=== PATIENT | female | born 1970 | race Caucasian/White ===

== ENCOUNTER 2019-08-03 15:42 | Inpatient (IN) | payer MEDICARE, MEDICAID, SELFPAY ==
[2019-08-03] VITALS (19 sets, daily range): BP systolic 129–190; BP diastolic 87–130; PULSE 65–110; RESP 12–34; TEMP 36.4–36.5; O2SAT 94–100; BMI 46.5
--- NOTE | 2019-08-03 16:16 | ED_ITS ---
Entered by Lidya Hyde, acting as scribe for Aj Paul DO Documented by User: Aj Paul DO 08/03/19 17:06 HPI - SOB/Dyspnea General: Chief Complaint: Shortness of Breath/Dyspnea Stated Complaint: sob Time Seen by Provider: 08/03/19 16:16 Source: patient and RN notes reviewed Mode of arrival: EMS Limitations: no limitations History of Present Illness: HPI Narrative: 49 yo female presents to ED with complaints of shortness of breath. She said this began 2-3 days ago. The patient takes breathing treatments at home; she is not on oxygen. She had 2 breathing treatments in the ambulance on the way to the ER. MD elicited complaint: shortness of breath Pertinent past history: COPD, asthma and other (anxiety) Onset (ago): day(s) (2) Context: recent illness Timing: constant Severity: moderate Exacerbating factors: exertion, talking and smoke Relieving factors: oxygen and rest Known history of: COPD, asthma and other (anxiety) Associated symptoms: Reports chest pain Treatment prior to arrival: oxygen and other (breathing treatment) Related Data: Home oxygen amount: none Review of Systems General: Reports: 10 or more systems reviewed and unremarkable except in HPI and below Card: Reports: chest pain [facility] ED PFSH: Social History Smoking and tobacco status: former smoker Alcohol intake: current Alcohol intake frequency: few times a week Physical Exam Const: COMMON NORMALS: no apparent distress, average body habitus, oriented x3, no limitations, healthy appearing, alert and well nourished HENMT: COMMON NORMALS: normocephalic, head/scalp atraumatic, hearing grossly normal bilaterally, external ears normal, EAC's normal, TM's normal bilaterally, external nose normal, nasal mucous membranes and turbinates normal, moist oral mucous membranes, oropharynx normal, dentition normal and gingiva normal HEAD & SCALP: normocephalic and atraumatic NOSE: external nose normal and nasal mucous membranes and turbinates normal EXTERNAL EAR: Yes external ears normal EXTERNAL AUDITORY CANAL: EAC's normal TYMPANIC MEMBRANE: TM's normal bilaterally Eye: COMMON NORMALS: PERRL, EOMs intact bilaterally, conjunctivae normal, no scleral icterus, no papilledema, normal visual roche by confrontation and fundi normal bilaterally CONJUNCTIVA: Yes conjunctivae normal PUPIL: Yes PERRL DIRECT OPHTHALMOSCOPY: Yes no papilledema and Yes fundi normal bilaterally Neck/C-Spine: COMMON NORMALS: full ROM, no lymphadenopathy, supple, no meningeal signs, no JVD, thyroid normal and no carotid bruits THYROID: thyroid normal Chest: COMMONS NORMALS: inspection of chest normal and palpation of chest normal Resp: COMMON NORMALS: normal respiratory effort, no retractions, no use of accessory muscles, clear to auscultation bilaterally and percussion normal AUSCULTATION: clear to auscultation bilaterally PERCUSSION: percussion normal Cardio: COMMON NORMALS: no JVD, regular rate, regular rhythm, S1 normal heart sound, S2 normal heart sound, no gallops, no clicks, no murmurs, no rub and peripheral pulses 2+ throughout RATE: regular rate RHYTHM: regular rhythm HEART SOUNDS: S1 normal and S2 normal PERIPHERAL PULSES: pulses 2+ throughout GI: COMMON NORMALS: normal to inspection, nondistended, normoactive bowel sounds, soft to palpation, non-tender, no hepatosplenomegaly, no masses and no bruits PALPATION: Yes soft and Yes no hepatosplenomegaly : COMMON NORMALS: Yes no CVA tenderness and Yes external appearance normal BLADDER/KIDNEY EXAM: Yes no CVA tenderness Back/Pelvis: COMMON NORMALS: no CVA tenderness, thoracic and lumbar spine normal to inspection, no thoracic nor lumbar tenderness, thoraco-lumbar ROM normal and straight leg raise negative bilaterally Extremity: COMMON NORMALS: normal to inspection, full ROM, normal capillary refill, no joint enlargement, no clubbing, cyanosis or edema, no calf tenderness and no pedal edema Neuro: COMMON NORMALS: oriented x3 SENSORIUM/ORIENTATION: Yes alert MENINGEAL SIGNS: Yes no meningeal signs Skin: COMMON NORMALS: no rashes or lesions noted, no wounds, skin turgor normal, no jaundice, no petechiae and no mottling GENERAL SKIN EXAM: no rashes or lesions noted and turgor normal Course Vital Signs: Vital signs: Vital Signs Temperature 97.7 F 08/03/19 15:43 Pulse Rate 82 08/03/19 16:02 Respiratory Rate 12 08/03/19 17:52 Blood Pressure 136/99 08/03/19 16:02 Pulse Oximetry 99 08/03/19 16:02 MDM - SOB/Dyspnea Lab Data: Labs: Lab Results 08/03/19 08/03/19 08/03/19 Range/Units 16:45 16:52 16:52 WBC 10.0 (4.0-10.0) 10^3/ uL RBC 5.04 (4.1-5.3) 10^6/u L Hgb 14.4 (11.5-15.3) g/dL Hct 44.0 (37.0-47.0) % MCV 87.3 (81-99) fL MCH 28.6 (28.0-34.0) pg MCHC 32.7 (30.0-36.0) g/dL RDW 14.1 (12.1-15.1) % Plt Count 276 (130-400) 10^3/c mm MPV 10.1 (7.4-10.4) fL Neut % (Auto) 78.6 % Lymph % (Auto) 18.3 % Carbon % (Auto) 2.0 % Eos % (Auto) 0.5 % Baso % (Auto) 0.4 % Neut # (Auto) 7.9 H (1.8-7.7) 10^3/u L Lymph # (Auto) 1.8 (0.8-4.8) 10^3/u L Carbon # (Auto) 0.2 (0.2-0.9) 10^3/u L Eos # (Auto) 0.1 (0.0-0.8) 10^3/u L Baso # (Auto) 0.0 (0.0-0.1) 10^3/u L Nucleated RBC % (a uto) 0 % Nucleated RBCs # 0.0 /100WBC Sodium 137 (136-145) mmol/L Potassium 4.4 (3.5-5.1) mmol/L Chloride 100 (98-107) mmol/L Carbon Dioxide 20 L (22-29) mmol/L Anion Gap 21.4 H (5-19) BUN 18 (6-20) mg/dL Creatinine 1.0 H (0.5-0.9) mg/dL GFR Calculation 59.2 L (90-130) mL/min Glucose 151 H (65-115) mg/dL Calcium 10.3 (8.5-10.5) mg/dL Total Bilirubin 0.4 (0.15-1.2) mg/dL AST 27 (0-32) U/L ALT 30 (0-33) U/L Alkaline Phosphata se 95 (35-105) IU/L Troponin T Baselin e (0-10) ng/mL Troponin T 120 Min augustine (0-10) ng/mL Delta Troponin T (0-10) ABS# NT-Pro-B Natriuret Pep 53 (0-125) pg/mL Total Protein 8.6 (6.6-8.7) g/dL Albumin 4.9 (3.5-5.2) g/dL Globulin 3.7 (1.3-4.6) g/dL Lipase 20 (13-60) U/L Influenza Type A A g Negative (Negative) POC Influenza B Ag Negative (Negative) 08/03/19 08/03/19 Range/Units 16:52 18:39 WBC (4.0-10.0) 10^3/ uL RBC (4.1-5.3) 10^6/u L Hgb (11.5-15.3) g/dL Hct (37.0-47.0) % MCV (81-99) fL MCH (28.0-34.0) pg MCHC (30.0-36.0) g/dL RDW (12.1-15.1) % Plt Count (130-400) 10^3/c mm MPV (7.4-10.4) fL Neut % (Auto) % Lymph % (Auto) % Carbon % (Auto) % Eos % (Auto) % Baso % (Auto) % Neut # (Auto) (1.8-7.7) 10^3/u L Lymph # (Auto) (0.8-4.8) 10^3/u L Carbon # (Auto) (0.2-0.9) 10^3/u L Eos # (Auto) (0.0-0.8) 10^3/u L Baso # (Auto) (0.0-0.1) 10^3/u L Nucleated RBC % (a uto) % Nucleated RBCs # /100WBC Sodium (136-145) mmol/L Potassium (3.5-5.1) mmol/L Chloride (98-107) mmol/L Carbon Dioxide (22-29) mmol/L Anion Gap (5-19) BUN (6-20) mg/dL Creatinine (0.5-0.9) mg/dL GFR Calculation (90-130) mL/min Glucose (65-115) mg/dL Calcium (8.5-10.5) mg/dL Total Bilirubin (0.15-1.2) mg/dL AST (0-32) U/L ALT (0-33) U/L Alkaline Phosphata se (35-105) IU/L Troponin T Baselin e 10 (0-10) ng/mL Troponin T 120 Min augustine 8.35 (0-10) ng/mL Delta Troponin T -1.65 L (0-10) ABS# NT-Pro-B Natriuret Pep (0-125) pg/mL Total Protein (6.6-8.7) g/dL Albumin (3.5-5.2) g/dL Globulin (1.3-4.6) g/dL Lipase (13-60) U/L Influenza Type A A g (Negative) POC Influenza B Ag (Negative) Discharge Plan Discharge Patient Disposition: Placed in Observation Clinical Impression: Chest pain Condition: Stable Prescriptions: No Action albuterol sulfate [Ventolin HFA] 90 mcg/actuation HFA aerosol inhaler 2 puff INHALATION Q6H PRNRF: 0 olmesartan [Benicar] 40 mg tablet 40 mg PO ONCE RF: 0 amlodipine 10 mg tablet 10 mg PO .AT BEDTIME RF: 0 atorvastatin [Lipitor] 40 mg tablet 40 mg PO DAILY RF: 0 Byetta 5 mcg/dose (250 mcg/mL) 1.2 mL pen injector 5 mcg SUBCUT BID RF: 0 ondansetron HCl 4 mg tablet 4 mg PO Q8H PRNRF: 0 duloxetine 60 mg capsule,delayed release(DR/EC) 60 mg PO DAILY RF: 0 fluticasone propionate 50 mcg/actuation spray,suspension 1 spray INTRANASAL BID RF: 0 cetirizine [Zyrtec] 10 mg tablet 10 mg PO DAILY RF: 0 Referrals: Emmy Sandoval MD [Primary Care Provider] - Coding Level of Care Code ED Oxidation Operator for Chg Fwd Exam Comprehensive Documented by User: Bren Valente 08/03/19 20:27 HPI - SOB/Dyspnea General: Chief Complaint: Shortness of Breath/Dyspnea Stated Complaint: sob Time Seen by Provider: 08/03/19 16:16 PFSH ED PFSH: Social History Smoking and tobacco status: former smoker Alcohol intake: current Alcohol intake frequency: few times a week Course Vital Signs: Vital signs: Vital Signs Temperature 97.7 F 08/03/19 15:43 Pulse Rate 82 08/03/19 16:02 Respiratory Rate 12 08/03/19 17:52 Blood Pressure 136/99 08/03/19 16:02 Pulse Oximetry 99 08/03/19 16:02 MDM - SOB/Dyspnea MDM Narrative: Medical decision making narrative: The patient comes in with shortness of breath but no pulmonary symptoms. She has no cough, no fever no sputum production. On exam she is not wheezing. She has a change in her EKG and she does describe chest pressure. Her heart score is a 5. I reviewed the case in full with Dr. Webb and she is agreeable to admission. Lab Data: Labs: Lab Results 08/03/19 08/03/19 08/03/19 Range/Units 16:45 16:52 16:52 WBC 10.0 (4.0-10.0) 10^3/ uL RBC 5.04 (4.1-5.3) 10^6/u L Hgb 14.4 (11.5-15.3) g/dL Hct 44.0 (37.0-47.0) % MCV 87.3 (81-99) fL MCH 28.6 (28.0-34.0) pg MCHC 32.7 (30.0-36.0) g/dL RDW 14.1 (12.1-15.1) % Plt Count 276 (130-400) 10^3/c mm MPV 10.1 (7.4-10.4) fL Neut % (Auto) 78.6 % Lymph % (Auto) 18.3 % Carbon % (Auto) 2.0 % Eos % (Auto) 0.5 % Baso % (Auto) 0.4 % Neut # (Auto) 7.9 H (1.8-7.7) 10^3/u L Lymph # (Auto) 1.8 (0.8-4.8) 10^3/u L Carbon # (Auto) 0.2 (0.2-0.9) 10^3/u L Eos # (Auto) 0.1 (0.0-0.8) 10^3/u L Baso # (Auto) 0.0 (0.0-0.1) 10^3/u L Nucleated RBC % (a uto) 0 % Nucleated RBCs # 0.0 /100WBC Sodium 137 (136-145) mmol/L Potassium 4.4 (3.5-5.1) mmol/L Chloride 100 (98-107) mmol/L Carbon Dioxide 20 L (22-29) mmol/L Anion Gap 21.4 H (5-19) BUN 18 (6-20) mg/dL Creatinine 1.0 H (0.5-0.9) mg/dL GFR Calculation 59.2 L (90-130) mL/min Glucose 151 H (65-115) mg/dL Calcium 10.3 (8.5-10.5) mg/dL Total Bilirubin 0.4 (0.15-1.2) mg/dL AST 27 (0-32) U/L ALT 30 (0-33) U/L Alkaline Phosphata se 95 (35-105) IU/L Troponin T Baselin e (0-10) ng/mL Troponin T 120 Min augustine (0-10) ng/mL Delta Troponin T (0-10) ABS# NT-Pro-B Natriuret Pep 53 (0-125) pg/mL Total Protein 8.6 (6.6-8.7) g/dL Albumin 4.9 (3.5-5.2) g/dL Globulin 3.7 (1.3-4.6) g/dL Lipase 20 (13-60) U/L Influenza Type A A g Negative (Negative) POC Influenza B Ag Negative (Negative) 08/03/19 08/03/19 Range/Units 16:52 18:39 WBC (4.0-10.0) 10^3/ uL RBC (4.1-5.3) 10^6/u L Hgb (11.5-15.3) g/dL Hct (37.0-47.0) % MCV (81-99) fL MCH (28.0-34.0) pg MCHC (30.0-36.0) g/dL RDW (12.1-15.1) % Plt Count (130-400) 10^3/c mm MPV (7.4-10.4) fL Neut % (Auto) % Lymph % (Auto) % Carbon % (Auto) % Eos % (Auto) % Baso % (Auto) % Neut # (Auto) (1.8-7.7) 10^3/u L Lymph # (Auto) (0.8-4.8) 10^3/u L Carbon # (Auto) (0.2-0.9) 10^3/u L Eos # (Auto) (0.0-0.8) 10^3/u L Baso # (Auto) (0.0-0.1) 10^3/u L Nucleated RBC % (a uto) % Nucleated RBCs # /100WBC Sodium (136-145) mmol/L Potassium (3.5-5.1) mmol/L Chloride (98-107) mmol/L Carbon Dioxide (22-29) mmol/L Anion Gap (5-19) BUN (6-20) mg/dL Creatinine (0.5-0.9) mg/dL GFR Calculation (90-130) mL/min Glucose (65-115) mg/dL Calcium (8.5-10.5) mg/dL Total Bilirubin (0.15-1.2) mg/dL AST (0-32) U/L ALT (0-33) U/L Alkaline Phosphata se (35-105) IU/L Troponin T Baselin e 10 (0-10) ng/mL Troponin T 120 Min augustine 8.35 (0-10) ng/mL Delta Troponin T -1.65 L (0-10) ABS# NT-Pro-B Natriuret Pep (0-125) pg/mL Total Protein (6.6-8.7) g/dL Albumin (3.5-5.2) g/dL Globulin (1.3-4.6) g/dL Lipase (13-60) U/L Influenza Type A A g (Negative) POC Influenza B Ag (Negative) Imaging Data^: CXR: My impression: No acute cardiopulmonary findings. EKG Data^: EKG 1: Attestation: I personally reviewed and interpreted this EKG as follows: EKG Interpretation Date: 08/03/19 EKG interpretation time: 16:55 Interpretation: Sinus rhythm at 94 beats a minute, incomplete right bundle branch block, T wave inversions in V3 through V6, change from previous. EKG 2: Attestation: I personally reviewed and interpreted this EKG as follows: EKG Interpretation Date: 08/03/19 EKG interpretation time: 18:33 Interpretation: Normal sinus rhythm at 96 beats a minute, left axis deviation, incomplete right bundle branch block, T wave inversions V2 through V3 with nonspecific changes in lateral leads. Discharge Plan Discharge Patient Disposition: Placed in Observation Clinical Impression: Chest pain Condition: Stable Prescriptions: No Action albuterol sulfate [Ventolin HFA] 90 mcg/actuation HFA aerosol inhaler 2 puff INHALATION Q6H PRNRF: 0 olmesartan [Benicar] 40 mg tablet 40 mg PO ONCE RF: 0 amlodipine 10 mg tablet 10 mg PO .AT BEDTIME RF: 0 atorvastatin [Lipitor] 40 mg tablet 40 mg PO DAILY RF: 0 Byetta 5 mcg/dose (250 mcg/mL) 1.2 mL pen injector 5 mcg SUBCUT BID RF: 0 ondansetron HCl 4 mg tablet 4 mg PO Q8H PRNRF: 0 duloxetine 60 mg capsule,delayed release(DR/EC) 60 mg PO DAILY RF: 0 fluticasone propionate 50 mcg/actuation spray,suspension 1 spray INTRANASAL BID RF: 0 cetirizine [Zyrtec] 10 mg tablet 10 mg PO DAILY RF: 0 Referrals: Emmy Sandoval MD [Primary Care Provider] - Coding Level of Care Code ED Oxidation Operator for Chg Fwd Exam Comprehensive
--- NOTE | 2019-08-03 16:32 | XR_ITS ---
WS: [id number] XR chest 1V portable [id number] REASON FOR EXAM: chest pain FINDINGS: Comparisons were made to 05/11/2019. The heart is not enlarged mediastinal interfaces normal. The lung roche are well-aerated there is no pneumonia, pleural effusion, pulmonary edema, or pneumot horax. The hilum and apices normal. No osseous abnormalities. XR/XR chest 1V portable [id number] IMPRESSION: No active cardiopulmonary changes.
--- NOTE | 2019-08-03 16:35 | ECG_ITS ---
Measurements Intervals [place] Rate: 94 P: 37 CA: 156 QRS: 7 QRSD: 102 T: 17 QT: 354 QTc: 444 SINUS RHYTHM POSSIBLE LEFT ATRIAL ENLARGEMENT INCOMPLETE RIGHT BUNDLE BRANCH BLOCK MODERATE T-WAVE ABNORMALITY, CONSIDER ANTEROLATERAL ISCHEMIA Compared to ECG 05/10/2019 03:33:13 Incomplete right bundle-branch block now present Possible ischemia now present T-wave abnormality still present Electronically Signed On 08-04-2019 13:18:52 FERRIS WHEEL ATTENDANT by Debbi Galan M.D. [email or web address]
[2019-08-03 17:00] LABS: Basophils % 0.4 %; Eosinophils # 0.1 10^3/uL (0.0-0.8); Eosinophils % 0.5 %; Hemoglobin 14.4 g/dL (11.5-15.3); Lymphocytes # 1.8 10^3/uL (0.8-4.8); Lymphocytes % 18.3 %; Mean Corpuscular HGB Conc 32.7 g/dL (30.0-36.0); Mean Corpuscular Hemoglobin 28.6 pg (28.0-34.0); Mean Corpuscular Volume 87.3 fL (81-99); Mean Platelet Volume 10.1 fL (7.4-10.4); Monocytes # 0.2 10^3/uL (0.2-0.9); Neutrophils # 7.9 10^3/uL (1.8-7.7); Neutrophils % 78.6 %; Nucleated Red Blood Cells % 0 %; Platelet Count 276 10^3/cmm (130-400); Red Blood Count 5.04 10^6/uL (4.1-5.3); Red Cell Distribution Width 14.1 % (12.1-15.1)
[2019-08-03] MEDS: ondansetron 2 mg/ML SDV 2 mL 4 MG IVP ×2 (17:05→22:41)
[2019-08-03] MEDS: LORazepam 2 mg/mL INJ 1 mL IVP (17:05)
[2019-08-03] MEDS: sodium chloride 0.9% 500 ML 999 ML IV (17:05)
[2019-08-03] MEDS: morphine 4 mg/mL SDV 1 mL IVP ×2 (17:05→22:41)
[2019-08-03 17:18] LABS: Troponin(5th) Baseline 10 ng/mL (0-10)
[2019-08-03 17:24] LABS: Influenza A by IFA Negative (Negative); Influenza B by IFA Negative (Negative)
[2019-08-03 17:29] LABS: Alanine Aminotransferase 30 U/L (0-33); Albumin Level 4.9 g/dL (3.5-5.2); Alkaline Phosphatase 95 IU/L (35-105); Anion Gap 21.4 (5-19); Blood Urea Nitrogen 18 mg/dL (6-20); Calcium 10.3 mg/dL (8.5-10.5); Carbon Dioxide 20 mmol/L (22-29); Chloride 100 mmol/L (98-107); Globulin 3.7 g/dL (1.3-4.6); Glomerular Filtration Rate 59.2 mL/min (90-130); Glucose 151 mg/dL (65-115); Lipase 20 U/L (13-60); NT Pro B Type Natriuretic Pept 53 pg/mL (0-125); Potassium 4.4 mmol/L (3.5-5.1); Sodium 137 mmol/L (136-145); Total Bilirubin 0.4 mg/dL (0.15-1.2); Total Protein 8.6 g/dL (6.6-8.7)
[2019-08-03 17:47] LABS: Aspartate Amino Transferase 27 U/L (0-32)
[2019-08-03] MEDS: morphine 4 mg/mL SDV 1 mL 2 MG IVP (17:52)
--- NOTE | 2019-08-03 18:35 | ECG_ITS ---
Measurements Intervals [place] Rate: 96 P: 37 IN: 158 QRS: -15 QRSD: 117 T: 9 QT: 386 QTc: 489 SINUS RHYTHM INCOMPLETE RIGHT BUNDLE BRANCH BLOCK [90+ ms QRS DURATION, TERMINAL R IN V1/V2, 40+ ms S IN I/aVL/V4/V5/V6] MODERATE VOLTAGE CRITERIA FOR LVH, CONSIDER NORMAL VARIANT [MEETS CRITERIA IN ONE OF: R(aVL), S(V1), R(V5), R(V5/V6)+S(V1)] NONSPECIFIC T-WAVE ABNORMALITY Compared to ECG 05/10/2019 03:33:13 Incomplete right bundle-branch block now present T-wave abnormality still present Electronically Signed On 08-04-2019 17:31:25 DIGITAL MEDIA DIRECTOR by Debbi Galan M.D. [email or web address]
[2019-08-03 19:05] LABS: Troponin 5 2HR 8.35 ng/mL (0-10)
[2019-08-03 19:06] LABS: Troponin 5 2HR Delta -1.65 ABS# (0-10)
--- NOTE | 2019-08-03 20:31 | ECG_ITS ---
NAME OF STUDY: LEXISCAN SESTAMIBI STRESS TEST INDICATION: Chest Pain NOTE: Please note that this is the electrocardiogram portion of the Lexiscan/Sestamibi stress test. The perfusion scan will be documented separately. DATA: Baseline heart rate was 79 beats per minute. Baseline blood pressure was 118/96 millimeters of mercury. Target heart rate was 172. Maximum heart rate achieved was 128. which was 74 % of the predicted target heart rate. Maximum blood pressure was 157/104 millimeters of mercury. The reason for ending the test was completion of the protocol. The patient did not experience any symptoms. ELECTROCARDIOGRAM: BASELINE: Sinus rhythm. Normal axis. Incomplete right bundle branch block Otherwise, no ST-T changes suggestive of ischemia noted. No arrhythmia noted. EXERCISE: After Lexiscan injection, no ST-T changes suggestive of ischemic noted. No arrhythmia noted. CONCLUSION: Please note due to baseline abnormality of the EKG specificity and sensitivity of the EKG portion of LexiScan MIBI stress test will be low 1. EKG not suggestive of ischemia 2. Lexiscan injection unremarkable. 3. Perfusion scan will be documented separately. Electronically Signed On 08-04-2019 21:48:29 HEART DOCTOR by Alin Castellano M.D. [email or web address]
--- NOTE | 2019-08-03 20:32 | NMCV_ITS ---
NM dandre perf SPECT r/s* [id number] Diamond Lin Age: 49 Gender: F : 1970 Exam Date: 08/04/2019 07:27 Ordering Phys: Lolly Webb MD Technologist: YURIY Ojeda Exam Location: [facility] Indications: Chest pain STRESS TEST [facility] IMAGE PROTOCOL Rest/Stress 1 Lexiscan Day Radiopharmaceutical Dose (mCi) Administration Site Administered by Rest: Tc-99m 10.7 IV Katiuska Betina, CLERICAL SECRETARY Sestamibi Stress:Tc-99m 32.6 IV Katiuska Betina, CLERICAL SECRETARY Sestamibi Rest: 04-Aug-2019 60 Discovery 630 Stress: 04-Aug-2019 45 Discovery 630 0.4mg Lexiscan. Images obtained in supine and prone position. SPECT RESULTS Technical Quality: Good Raw Data Analysis: Breast attenuation, Soft tissue attenuation Image Corrections: No attenuation or motion correction applied Summed Stress Score: 0 Summed Rest Score: 0 Summed Difference Score: 0 PERFUSION FINDINGS SPECT images demonstrate homogeneous tracer distribution throughout the myocardium. FUNCTIONAL RESULTS (calculated via Gated SPECT) Stress Image LV EF (%): 58 Stress EDV (mL):101 TID: 1.08 Stress ESV (mL):42 Rest Image LV EF (%): 58 FUNCTIONAL FINDINGS: There is normal left ventricular systolic function. IMPRESSIONS Myocardial perfusion imaging is normal and low probability for obstructive coronary artery disease. Alin Castellano MD (Electronically Signed) Final Date: 04 August 2019 20:32 S
--- NOTE | 2019-08-03 20:42 | P.HP_ITS ---
Providers/Chief Complaint Admitting Physician: Lolly Webb MD Primary Care Provider: Emmy Sandoval MD Chief Complaint: Chest Pain History of Present Illness Diamond Lin is a 49 year old female with PMHx of Asthma/COPD on albuterol inhaler prn, Morbid obesity, sleep apnea, non complaint with CPAP due to claustrophobia, DM2, Anxiety disorder, HTN, Seizure disorder, Former smoker, occasional THC use, DJD, sciatica, chronic back pain, CKD stage 2 who presented to the hospital [facility] complaining of worsening shortness of breath ongoing since at least May 2019 at which time she was diagnosed with an asthma exacerbation. Since discharge she states that shortness of breath is worsening on exertion. She is unable to quantify the distance that she is able to walk however states that even within home that is worsening. She states that she is unable to lie flat, however I am unable to ascertain if this is more related to her sleep apnea or orthopnea. She has not noticed any swelling over her lower extremities since then. She denies increased use of her inhalers recently. There is no complaint of any cough or recent URI symptoms. No sick contacts. Today she presents to the ER complaining of central chest pain which is a dull achy type. Intensity 7-8 on 10. Relieved by morphine that she received in the ED. States that the chest pain worsens with exertion and there are no relieving factors. She also reports a history of intermittent palpitations starting since at least May 2019, however she has not been worked up for the same yet. She had similar episodes of episodic chest pain about 10 years ago at which he underwent a cardiac cath which per her report did not show obstructive coronary artery disease. She has not had any stress test subsequently. Per her, BP and BS have been well controlled. Diagnostics in the ER showed no acute ST-T changes on EKG, troponins are negative with unremarkable delta. BNP is negative. Review of Systems General: Reports: 10 or more systems reviewed and unremarkable except in HPI and below Const: Denies: fever, chills or body aches Eyes: Denies: change in vision, blurry vision or photophobia ENMT: Reports: hoarseness; Denies: throat pain, enlarged tonsils, painful swallowing or nasal congestion Card: Reports: chest pain, palpitations and shortness of breath on exertion; Denies: irregular heart rhythm, edema, swelling of feet/ankles, lightheadedness, pre-syncope or shortness of breath when lying down Resp: Denies: shortness of breath, productive cough, non-productive cough, wheezing, stridor, pain on inspiration, change in phlegm color, coughing up blood or chest congestion GI: Denies: abdominal pain, nausea, vomiting, vomiting blood, coffee grounds in vomit, difficulty swallowing, heartburn/indigestion, diarrhea, constipation, cramping, change in stool character, blood in stool or black tarry stool : Denies: flank pain, difficulty urinating, painful urination, urinary frequency, urinary urgency, urinary hesitancy or blood in urine Musc: Denies: neck pain, back pain, extremity pain, joint swelling, joint warmth or deformity Neuro: Denies: headache, numbness in extremities, weakness in extremities, changes in sensation, difficulty walking, frequent falls, dizziness, vertigo, behavioral changes, slurred speech or seizure-like activity Psych: Denies: anxiety, depression, suicidal ideation or homicidal ideation Endo: Denies: excessive urination, excessive thirst, tired all the time, cold intolerance or hot flashes Alvin/Lymph: Denies: easy bruising or easy bleeding Medications/Allergies Allergies Allergy/AdvReac Type Severity Reaction Status Date / Time asenapine [From Saphris] Allergy Unknown Verified 08/03/19 13:49 ketorolac [From Toradol] Allergy Unknown Verified 08/03/19 13:49 PFSH Acute PFSH: Medical History (Updated 08/03/19 @ 20:57 by Lolly Webb MD) Anxiety Asthma CKD (chronic kidney disease) Degenerative disc disease Diabetes Hypertension Obstructive sleep apnea Sleep apnea Surgical History (Updated 08/03/19 @ 20:57 by Lolly Webb MD) History of ankle surgery History of cholecystectomy History of hysterectomy History of tonsillectomy Family History (Updated 08/03/19 @ 20:57 by Lolly Webb MD) Other CAD (coronary artery disease) Cancer Diabetes Social History (Updated 08/03/19 @ 20:57 by Lolly Webb MD) Smoking and tobacco status: current every day smoker Alcohol intake: current Alcohol intake frequency: few times a week Vitals/I&O/Wt Last Vital Signs Temp 97.7 F 08/03/19 15:43 Pulse 98 08/03/19 20:00 Resp 23 H 08/03/19 20:00 BP 129/87 08/03/19 20:00 Pulse Ox 95 08/03/19 20:00 Weight last 48 hrs Weight 122.924 kg Physical Exam Narrative: EXAM NARRATIVE: GEN: Awake, alert and oriented, no acute distress CVS: S1S2 N RS: CTA B/L all areas Abd: Soft, nt/nd , bs+ FIRE INFORMATION OFFICER: no focal neuro deficits EXT: obesity+, no pitting edema Data : 08/03/19 16:52 08/03/19 16:52 A&P Assessment and plan (1) Diabetes: Status: Acute Code(s): E11.9 - Type 2 diabetes mellitus without complications (2) CKD (chronic kidney disease): Status: Acute Code(s): N18.9 - Chronic kidney disease, unspecified (3) Asthma: Status: Acute Code(s): J45.909 - Unspecified asthma, uncomplicated (4) Hypertension: Status: Acute Code(s): I10 - Essential (primary) hypertension (5) Chest pain: Status: Acute Qualifiers: Chest pain type: unspecified Qualified Code(s): R07.9 - Chest pain, unspecified Code(s): R07.9 - Chest pain, unspecified Additional A&P Information Admit to CSU for observation. Patient currently has no acute ST-T changes., Troponins with unremarkable delta, unlikely ACS. Significant risk factors for cardiac disease, reports past cath 10 yrs ago with non obstructive CAD. Will keep npo for tonight and proceed with stress test in morning No overt signs of CHF, lungs are clear, no JVD, no LE edema or anasarca. Morbid obesity+. Overnight on tele monitoring to r/o arrhythmias Add ASA 81mg qd Continue amlodipine, benicar for HTN Mild ISS for DM, last A1c 6.9 Asthma not currently exacerbated, duonebs prn, no steroids indicated DVT ppx: lovenox Full code Attestations Medical Necessity Statement*: anticipate < 2midnight admission for cardiac stress test , chest pain w/up Coding Level of Care Code Acute Independent Video Producer for Chg Fwd Diagnoses Diabetes E11.9 CKD (chronic kidney disease) N18.9 Asthma J45.909 Hypertension I10 Chest pain R07.9 Chest pain type: unspecified
--- NOTE | 2019-08-03 22:35 | ECG_ITS ---
Measurements Intervals [place] Rate: 63 P: 31 NC: 177 QRS: 17 QRSD: 118 T: 7 QT: 422 QTc: 434 SINUS RHYTHM WITH SINUS ARRHYTHMIA INCOMPLETE RIGHT BUNDLE BRANCH BLOCK MODERATE T-WAVE ABNORMALITY, CONSIDER ANTERIOR ISCHEMIA [-0.1+ mV T WAVE IN V3/V4] Compared to ECG 05/10/2019 03:33:13 Incomplete right bundle-branch block now present Possible ischemia now present T-wave abnormality still present Electronically Signed On 08-04-2019 17:30:40 INFECTION CONTROL NURSE by Debbi Galan M.D. [email or web address]
[2019-08-03 22:39] LABS: Glucose Point of Care 189 mg/dL (70-110)
[2019-08-03] MEDS: losartan 50 mg Tablet 100 MG PO (22:40)
[2019-08-03] MEDS: sodium chloride 0.9% 1,000 ML 75 ML IV (22:41)
[2019-08-03] MEDS: enoxaparin 40 mg/0.4 mL Syringe SUBCUT (22:41)
--- NOTE | 2019-08-03 23:14 | PC.NURSE ---
Patient arrived to the floor from the ED after report was received via phone. Patient is alert and oriented and is able to ambulate on her own. Patient was complaining of chest pain 7/10, stating it is better than what is was. She was also complaining of nausea. PRN Zofran and Morphine given per order. Patient has been oriented to her room and has call light within reach. Patient is on 2 L NC with oxygen saturation of 94%. Will continue to monitor.
[2019-08-03] MEDS: zolpidem 5 mg Tablet PO (23:35)
--- NOTE | 2019-08-03 23:38 | PC.NURSE ---
Patient was resting with eyes closed. Nurse woke patient to reassess pain level. Patient states it is better at 4/10. it is a tolerable level now. Will continue to monitor.
[2019-08-04] VITALS (14 sets, daily range): BP systolic 100–151; BP diastolic 60–98; PULSE 60–78; RESP 14–20; TEMP 36.7–36.9; O2SAT 92–98
[2019-08-04 00:17] LABS: Troponin 5 6HR 7.27 ng/mL (0-10)
[2019-08-04 00:25] LABS: Troponin 5 6HR Delta -2.73 ng/L (0-12)
--- NOTE | 2019-08-04 02:21 | PC.NURSE ---
Dr. Webb notified of patient complaining of chest pain 12/23. PRN Morphine is not due yet. Nitropaste ordered.
[2019-08-04] MEDS: nitroglycerin 1 gm/inch oint Pkt 0.5 INCH TOPICAL ×4 (02:25→21:18)
--- NOTE | 2019-08-04 02:27 | PC.NURSE ---
Patient was given nitropaste and educated on it. Patient states please just give me morphine whenever I can get it. Nurse educated patient that she will reassess pain after nitropaste and give morphine when it is time if patient is still in pain.
--- NOTE | 2019-08-04 02:59 | PC.NURSE ---
Patient is currently playing a game on her phone. Patient is complaining of 7/10 chest pain after nitropaste. PRN Morphine given. Will continue to monitor.
[2019-08-04] MEDS: morphine 4 mg/mL SDV 1 mL IVP ×3 (03:00→17:56)
[2019-08-04] MEDS: ondansetron 2 mg/ML SDV 2 mL 4 MG IVP ×4 (03:03→17:45)
[2019-08-04 04:03] LABS: Basophils % 0.1 %; Hematocrit 41.2 % (37.0-47.0); Hemoglobin 13.3 g/dL (11.5-15.3); Lymphocytes % 14.3 %; Mean Corpuscular HGB Conc 32.3 g/dL (30.0-36.0); Mean Corpuscular Hemoglobin 29.2 pg (28.0-34.0); Mean Corpuscular Volume 90.4 fL (81-99); Monocytes # 0.1 10^3/uL (0.2-0.9); Monocytes % 1.9 %; Neutrophils # 5.8 10^3/uL (1.8-7.7); Neutrophils % 83.4 %; Nucleated Red Blood Cells % 0 %; Platelet Count 258 10^3/cmm (130-400); Red Blood Count 4.56 10^6/uL (4.1-5.3); Red Cell Distribution Width 14.3 % (12.1-15.1)
[2019-08-04 04:20] LABS: Chol HDL Ratio 7.27 mg/dL (0.0-4.40); Cholesterol 269 mg/dL (0-200); HDL Cholesterol 37 mg/dL (60-100); LDL Cholesterol Calculated 201 mg/dL (50-129); LDL HDL Ratio 5.43 RATIO (0.00-3.22); Triglycerides 154 mg/dL (0-150)
[2019-08-04 04:21] LABS: Alanine Aminotransferase 27 U/L (0-33); Albumin Level 3.9 g/dL (3.5-5.2); Alkaline Phosphatase 79 IU/L (35-105); Anion Gap 15.7 (5-19); Aspartate Amino Transferase 20 U/L (0-32); Blood Urea Nitrogen 11 mg/dL (6-20); Calcium 9.8 mg/dL (8.5-10.5); Carbon Dioxide 25 mmol/L (22-29); Chloride 100 mmol/L (98-107); Globulin 4.2 g/dL (1.3-4.6); Glomerular Filtration Rate 76.6 mL/min (90-130); Glucose 130 mg/dL (65-115); Magnesium 2.1 mg/dL (1.7-2.3); Potassium 4.7 mmol/L (3.5-5.1); Sodium 136 mmol/L (136-145); Total Bilirubin 0.3 mg/dL (0.15-1.2); Total Protein 8.1 g/dL (6.6-8.7)
[2019-08-04 05:04] LABS: Estmated Average Glucose 123; Hemoglobin A1C 5.9 % (4.0-6.0)
[2019-08-04 06:31] LABS: Glucose Point of Care 122 mg/dL (70-110)
--- NOTE | 2019-08-04 08:53 | SUR.PREOP ---
Patient reports no pain or discomfort prior to the start of the procedure.
--- NOTE | 2019-08-04 08:57 | P.PN_ITS ---
Subjective Subjective: Interval history: Chart reviewed, patient known to me from previous admission. Initially quite hypertensive, normotensive this AM. Stress testing today. Patient seen and examined, family at bedside, reports feeling fatigued, continues to have what she describes as chest pressure, left-sided with some numbness and tingling in her left hand. She reports having had chest pain chronically for several years and states that she has been told that she will need an angiogram. Has a strong family history of coronary artery disease. [place] resumed. Medications: Reviewed: Yes Medication Review Details: Current Medications Generic Name Dose Route Start Last Admin Trade Name Freq PRN Reason Stop Dose Admin Enoxaparin Sodium 40 mg 08/03/19 21:58 08/03/19 22:41 Lovenox SUBCUT 40 mg Q24H PARDEEP Administration Sodium Chloride 1,000 mls @ 75 ml s/hr 08/03/19 21:58 08/03/19 22:41 Sodium Chloride 0.9% IV 75 mls/hr .[id number] PARDEEP Administration Insulin Aspart 0 unit 08/03/19 21:58 08/04/19 08:33 Novolog SUBCUT Not Given WM&BEDTIME PARDEEP Protocol Morphine Sulfate 4 mg 08/03/19 21:58 08/04/19 03:00 Morphine IVP 4 mg Q4H PRN Administration SEVERE PAIN Nitroglycerin 0.5 inch 08/04/19 02:15 08/04/19 02:25 Nitro-Bid TOPICAL 0.5 inch Q6H PARDEEP Administration Ondansetron HCl 4 mg 08/03/19 21:58 08/04/19 03:03 Zofran IVP 4 mg Q6H PRN Administration NAUSEA AND VOMITI NG Ondansetron HCl 4 mg 08/04/19 07:02 08/04/19 08:55 Zofran IVP 4 mg Q2M PRN Administration NAUSEA Vitals/I&O/Wt Last Vital Signs Temp 98.2 F 08/04/19 03:09 Pulse 78 08/04/19 04:35 Resp 16 08/04/19 04:35 BP 126/81 08/04/19 03:09 Pulse Ox 95 08/04/19 07:39 08/03/19 08/04/19 08/04/19 22:59 06:59 14:59 Intake Total 0 / 0 200 / 200 Output Total 0 / 0 Balance 0 / 0 200 / 200 Weight last 48 hrs Weight 122.924 kg Physical Exam Const: COMMON NORMALS: no apparent distress and oriented x3 GENERAL APPEARANCE: cooperative and comfortable NUTRITIONAL APPEARANCE: obese morbidly obese ORIENTATION/CONSCIOUSNESS: Yes awake HENMT: COMMON NORMALS: normocephalic, head/scalp atraumatic, hearing grossly normal bilaterally and moist oral mucous membranes HEAD & SCALP: normocepha lic and atraumatic Eye: COMMON NORMALS: PERRL, EOMs intact bilaterally and conjunctivae normal CONJUNCTIVA: Yes conjunctivae normal PUPIL: Yes PERRL Neck/C-Spine: COMMON NORMALS: full ROM GENERAL: Yes normal visual inspection and Yes trachea midline Chest: COMMONS NORMALS: inspection of chest normal and palpation of chest normal Resp: COMMON NORMALS: normal respiratory effort, no retractions, no use of a ccessory muscles and clear to auscultation bilaterally EFFORT & INSPECTION: Yes able to speak in complete sentences, Yes symmetric chest movement and No tachypneic AUSCULTATION: clear to auscultation bilaterally Cardio: COMMON NORMALS: regular rate, regular rhythm, S1 normal heart sound, S2 normal heart sound and no murmurs RATE: regular rate RHYTHM: regular rhythm HEART SOUNDS: S1 normal and S2 normal GI: COMMON NORMALS: normal to inspection, nondistended, normoactive bowel sounds, soft to palpation and non-tender PALPATION: Yes soft Extremity: COMMON NORMALS: normal to inspection, full ROM and no clubbing, cyanosis or edema; negative for no pedal edema Neuro: COMMON NORMALS: oriented x3, moves all extremities, no focal motor deficits, no sensory deficits noted and gait normal Psych: COMMON NORMALS: mental status grossly normal, thought process normal, cooperative and speech normal SPEECH: Yes normal speech MOOD & AFFECT: Yes anxious THOUGHT PROCESS: normal thought process Skin: COMMON NORMALS: no rashes or lesions noted, no jaundice, no petechiae and no mottling GENERAL SKIN EXAM: no rashes or lesions noted Data : 08/04/19 03:25 08/04/19 03:25 A&P Assessment and plan (1) Chest pain: -presented with c/o chest pain -negative delta with serial troponins, no acute ischemic changes on ECG -telemetry monitoring -ARLET -nuclear stress testing today Status: Acute Qualifiers: Chest pain type: unspecified Qualified Code(s): R07.9 - Chest pain, unspecified Code(s): R07.9 - Chest pain, unspecified Additional A&P Information -Morbid obesity: BMI-47 kg/m2 -Seizure disorder -HTN; initially quite hypertensive, normotensive currently, continue oral antihypertensives -CKD stage 2; baseline Cr wnl -Moderate persistent asthma; no acute exacerbation currently -Anxiety -DJD, chronic back pain, sciatica -NPO currently for stress test; cardiac diet after procedure -Dispo: home -Code status: FULL code -change to inpatient status due to pending nuclear stress test results, continued pain control Attestations Medical Necessity Statement*: Patient requires hospitalization for continued management of chest pain, pending nuclear stress test results, pain control. Time Spent in Patient Care: Greater than 35 minutes (>than 50% of time spent in counselling and/or direct pt care on unit) . Coding Level of Care Code Acute Naval Surface Fire Support Planner for Chg Fwd Exam Comprehensive Diagnoses Chest pain R07.9 Chest pain type: unspecified
[2019-08-04] MEDS: regadenoson 0.4 Mg/5 ml Syringe IVP (09:00)
[2019-08-04] MEDS: aminophylline 25 mg/mL SDV 10 mL IVP (09:07)
[2019-08-04] MEDS: atorvastatin 40 mg Tablet PO (10:46)
[2019-08-04] MEDS: aspirin 81 mg EC Tablet PO (10:46)
[2019-08-04] MEDS: duloxetine 60 mg Capsule PO (10:46)
[2019-08-04] MEDS: fluticasone nasal spray 16gm Btl 1 SPRAY INTRANASAL ×2 (11:01→17:47)
[2019-08-04 11:32] LABS: Glucose Point of Care 125 mg/dL (70-110)
--- NOTE | 2019-08-04 12:23 | PC.CHAP ---
Pastoral Care Encounter/Spiritual Assessment Type of Contact [] Declined warehouse supervisor 3rd shift visit [] Patient/Family/Request visit [] Outpatient visit [] Follow-up visit [] Physician referral [] Code/Alert [x] Routine visit [] Staff referral [] Actively dying [] Patient sleeping [x] Family support [] [] Out of room [] Palliative care [] [] Receiving care in room [] Pre-surgical visit [] Trauma [] Long length of stay [] ICU visit [] Other: Relational/Emotional Strength [] Patient feels connected with others/family/visitors/staff [] Distress [] Loneliness/isolation [] Abandonment Spirituality of Patient [] Person of Anuradha [] Attends Mu-Ism of their Anuradha [] Believes in Prayer [] Reads Bible or Congregation materials [] There are Spiritual issues to be addressed Vehicle Return Associate Interventions [x] Prayer [] Active listening [] Non-anxious presence [] Spiritual/emotional support [] Crisis/trauma care [] Spiritual counseling [] Bereavement support [] Provided bereavement packet [] Provided Bible/devotional materials [] Provided toy/stuffed animal, coloring book to patient or family member [] Provided Communion [] Anointing/[place] [] Salvation [x] Completed spiritual assessment [] Other: Impact on Illness or Injury [] Angry [] Fearful [] Anxious [] Often cries [] Exhaustion [] Unable to work [] Unable to attend restorationism [] Unable to walk/stand [] Unable to read [] Unable to drive [] Unable to eat/drink [] Unable to sleep [] Unable to be with family [] Patient intubated [] Other: Summary Patient has past history to deal with, nonphysical issues; personal issues Time spent with patient 20min
[2019-08-04] MEDS: levETIRAcetam 500 mg Tablet 750 MG PO (16:00)
[2019-08-04 17:05] LABS: Glucose Point of Care 112 mg/dL (70-110)
[2019-08-04] MEDS: enoxaparin 40 mg/0.4 mL Syringe SUBCUT (21:18)
[2019-08-04] MEDS: morphine 4 mg/mL SDV 1 mL 2 MG IVP (21:31)
[2019-08-04 21:38] LABS: Glucose Point of Care 127 mg/dL (70-110)
[2019-08-05] VITALS (10 sets, daily range): BP systolic 116–152; BP diastolic 72–79; PULSE 59–81; RESP 16–24; TEMP 36.7–37; O2SAT 92–98
--- NOTE | 2019-08-05 01:33 | PC.NURSE ---
PT C/O PAIN AT IV SITE IN RIGHT AC. IV FLUSHED AND LALA WELL. PT STATED THAT THEY COULDN'T TOLERATE. IV WAS REMOVED. 20G WAS PLACED IN THE LEFT AC. PT PULLED IT OUT WHILE IN THE SHOWER. CHARGE NURSE TIRED TO PLACE AN IV WITHOUT SUCCESS. CHARGE NURSE TOLD THIS NURSE TO TRANSFER PT TO ROOM 279-2 AND THEY CAN TRY OR CALL ACADEMIC SUPPORT CENTER DIRECTOR. PT WAS TRANSFERRED TO ROOM 279-2 REPORT WAS GIVEN TO FABRIZIO GAN.
[2019-08-05] MEDS: nitroglycerin 1 gm/inch oint Pkt 0.5 INCH TOPICAL ×3 (01:36→15:25)
[2019-08-05] MEDS: ondansetron 2 mg/ML SDV 2 mL 4 MG IVP ×3 (01:36→16:06)
[2019-08-05] MEDS: morphine 4 mg/mL SDV 1 mL 2 MG IVP ×2 (01:37→07:55)
[2019-08-05] MEDS: levETIRAcetam 500 mg Tablet 750 MG PO (07:54)
[2019-08-05] MEDS: fluticasone nasal spray 16gm Btl 1 SPRAY INTRANASAL (07:54)
[2019-08-05] MEDS: duloxetine 60 mg Capsule PO (07:54)
[2019-08-05] MEDS: atorvastatin 40 mg Tablet PO (07:55)
[2019-08-05] MEDS: aspirin 81 mg EC Tablet PO (07:55)
[2019-08-05] MEDS: ipratropium-albuterol 3 mL Neb INHALATION (08:40)
--- NOTE | 2019-08-05 10:29 | PM.DCS ---
Discharge Providers Date of Admission: 08/04/19 17:39 Date of Discharge: August 05, 2019 Attending Provider at Admission: Lolly Webb MD Attending Provider at Discharge: Anne Montaño MD Primary Care Provider: Emmy Sandoval MD Diagnoses at Discharge Discharge Diagnosis (1) Chest pain: Status: Acute Problem details: -presented with c/o chest pain -negative delta with serial troponins, no acute ischemic changes on ECG -telemetry monitoring -ALRET -nuclear stress testing negative for significant coronary ischemia -start on Imdur Qualifiers: Chest pain type: unspecified Qualified Code(s): R07.9 - Chest pain, unspecified Other Information Additional DC diagnoses/information: -Morbid obesity: BMI-47 kg/m2 -Seizure disorder -HTN; initially quite hypertensive, normotensive currently, continue oral antihypertensives -CKD stage 2; baseline Cr wnl -Moderate persistent asthma; no acute exacerbation currently -Anxiety -DJD, chronic back pain, sciatica Reason for Visit Reason for Visit: Reason For Visit: Chest Pain Hospital Course Hospital Course: Patient was admitted to the cardiac stepdown unit and placed on telemetry monitoring with serial troponins and EKGs done. No noted significant delta change and no acute ischemic changes noted on EKG. She was initially significantly hypertensive which could be secondary to the chest pain that she presented with, but her blood pressure has since normalized and she is normotensive currently. Nuclear stress testing is negative for significant coronary ischemia. She seems to have relief with morphine and nitroglycerin so I have added Imdur (low dose) to her discharge medications. She has required oxygen during her hospital stay so had a home oxygen evaluation done prior to d/c and she does not qualify for this. Overall I think patient's symptoms are non-cardiac related and there is an element of anxiety. Discharge Summary: -Patient to follow up with primary care physician within 1 week Physical Exam Const: COMMON NORMALS: no apparent distress and oriented x3 GENERAL APPEARANCE: cooperative and comfortable NUTRITIONAL APPEARANCE: obese morbidly obese ORIENTATION/CONSCIOUSNESS: Yes awake HENMT: COMMON NORMALS: normocephalic, head/scalp atraumatic, hearing grossly normal bilaterally and moist oral mucous membranes HEAD & SCALP: normocephalic and atraumatic Eye: COMMON NORMALS: PERRL, EOMs intact bilaterally and conjunctivae normal CONJUNCTIVA: Yes conjunctivae normal PUPIL: Yes PERRL Neck/C-Spine: COMMON NORMALS: full ROM GENERAL: Yes normal visual inspection and Yes trachea midline Chest: COMMONS NORMALS: inspection of chest normal and palpation of chest normal Resp: COMMON NORMALS: normal respiratory effort, no retractions, no use of accessory muscles and clear to auscultation bilaterally EFFORT & INSPECTION: Yes able to speak in complete sentences, Yes symmetric chest movement and No tachypneic AUSCULTATION: clear to auscultation bilaterally Cardio: COMMON NORMALS: regular rate, regular rhythm, S1 normal heart sound, S2 normal heart sound and no murmurs RATE: regular rate RHYTHM: regular rhythm HEART SOUNDS: S1 normal and S2 normal GI: COMMON NORMALS: normal to inspection, nondistended, normoactive bowel sounds, soft to palpation and non-tender PALPATION: Yes soft Extremity: COMMON NORMALS: normal to inspection, full ROM and no clubbing, cyanosis or edema; negative for no pedal edema Neuro: COMMON NORMALS: oriented x3, moves all extremities, no focal motor deficits, no sensory deficits noted and gait normal Psych: COMMON NORMALS: mental status grossly normal, thought process normal, cooperative and speech normal SPEECH: Yes normal speech MOOD & AFFECT: Yes anxious THOUGHT PROCESS: normal thought process Skin: COMMON NORMALS: no rashes or lesions noted, no jaundice, no petechiae and no mottling GENERAL SKIN EXAM: no rashes or lesions noted Discharge Data Data Completed and Pending: Completed Studies During Hospitalization Category Date Time Status Sestamibi Stress Test Request Alan ne Exams 08/03/19 20:31 Completed XR chest 1V mariam ble [id number] Urgent Exams 08/03/19 16:32 Completed NM dandre perf SPECT r/s* [id number] Routin e Nuc Med 08/03/19 20:32 Completed Labs from last 24 hours 08/04/19 08/04/19 08/04/19 21:20 16:48 11:21 POC Glucose 127 112 125 Vitals: Last Vital Signs Temp 98.4 F 08/05/19 08:00 Pulse 78 08/05/19 08:45 Resp 18 08/05/19 08:41 BP 146/76 08/05/19 08:00 Pulse Ox 93 08/05/19 08:41 Discharge Plan Discharge Patient Disposition: Home, Self-Care Condition: Stable Prescriptions: New isosorbide mononitrate 30 mg tablet extended release 24 hr 30 mg PO DAILY 30 Days Qty: 30 RF: 0 ondansetron HCl [Zofran] 4 mg tablet 4 mg PO Q6H PRN (Reason: nausea and vomiting) Qty: 30 RF: 0 Continued albuterol sulfate [Ventolin HFA] 90 mcg/actuation HFA aerosol inhaler 2 puff INHALATION Q6H PRN (Reason: Shortness Of Breath Or Wheezing) RF: 0 amlodipine 10 mg tablet 10 mg PO .AT BEDTIME RF: 0 atorvastatin [Lipitor] 40 mg tablet 40 mg PO DAILY RF: 0 Byetta 5 mcg/dose (250 mcg/mL) 1.2 mL pen injector 5 mcg SUBCUT BID RF: 0 duloxetine 60 mg capsule,delayed release(DR/EC) 60 mg PO DAILY RF: 0 fluticasone propionate 50 mcg/actuation spray,suspension 1 spray INTRANASAL BID RF: 0 cetirizine [Zyrtec] 10 mg tablet 10 mg PO DAILY RF: 0 Ambien 10 mg Tablet 10 mg PO PRN PRN (Reason: Insomnia) RF: 0 Combivent Respimat 20-100 mcg/actuation Mist 1 puff INHALATION Q4H RF: 0 Keppra 750 mg Tablet 750 mg PO BID RF: 0 Discharge Orders: Discharge Order (Routine); Ordered 08/05/19 Ordered By: Anne Montaño Referrals: Emmy Sandoval MD [Primary Care Provider] - 4-7 days (Post-hospital discharge follow up. Started on low dose imdur due to complaints of chest pain. Nuclear stress testing negative ) Discharge Diet: Cardiac and Diabetic Discharge Activity: Resume usual activity Discharge Attestations Time Spent in Discharge Care*: greater than 30 min Specific Discharge Activities: Specific discharge activities: educating patient, educating and/or supporting family/caregiver, discussing with manager of case management/social workers/dc planners, documenting/other paperwork and evaluating patient/reviewing data Status at Discharge: Cognitive status at discharge: cognitively intact, Behavioral status at discharge: cooperative, Functional status at discharge: independent ambulation Overall status at discharge: patient is back to baseline Quality Metrics Clinical Quality Measures During this hospital stay, did patient experience: None Coding Level of Care Code Acute Retail Wireless Sales Representative for g Fwd Exam Comprehensive Diagnoses Chest pain R07.9 Chest pain type: unspecified
[2019-08-05] MEDS: isosorbide mononitrate ER 30 mg Tablet PO (10:58)
[2019-08-05 12:18] LABS: Glucose Point of Care 106 mg/dL (70-110)
--- NOTE | 2019-08-05 12:22 | PC.NURSE ---
PATIENT COMPLAINED OF CHEST PAIN. SINUS RHYTHM ON THE MONITOR. DR. MORALES NOTIFIED. VITALS: 146/79, 18, 75, 94%. 1MG ATIVAN ORDERED.
[2019-08-05] MEDS: LORazepam 2 mg/mL INJ 1 mL 1 MG IVP (12:28)
[2019-08-05 16:43] LABS: Glucose Point of Care 111 mg/dL (70-110)
== END 2019-08-05 17:21 | disposition home or self-care (01) | DRG 313 ==
LOC: ER 20:27 → CSU 20:35 → MEDSURG 08-05 08:56
PROVIDERS: Family Medicine; Admitting Provider Student in an Organized Health Care Education/Training Program; Emergency Provider Emergency Medicine; Family Provider Family Medicine; PCP Family Medicine; Visit Provider Family Medicine
DX: R07.9 Chest pain, unspecified (principal); Z68.42 Body mass index [BMI] 45.0-49.9, adult; J44.9 Chronic obstructive pulmonary disease, unspecified; Z87.891 Personal history of nicotine dependence; E66.01 Morbid (severe) obesity due to excess calories; N18.2 Chronic kidney disease, stage 2 (mild); F41.9 Anxiety disorder, unspecified; G40.909 Epilepsy, unspecified, not intractable, without status epilepticus; E11.22 Type 2 diabetes mellitus with diabetic chronic kidney disease; Z88.8 Allergy status to other drugs, medicaments and biological substances; Z91.19 Patient's noncompliance with other medical treatment and regimen; G47.33 Obstructive sleep apnea (adult) (pediatric); Z79.899 Other long term (current) drug therapy; I12.9 Hypertensive chronic kidney disease with stage 1 through stage 4 chronic kidney disease, or unspecified chronic kidney disease
CPT/HCPCS: 12345; 36415; 36416; 71045; 78452; 80053; 80061; 82962; 83036; 83690; 83735; 83880; 84484; 85025; 87804; 93005; 93017; 94640; 96372; 96374; 96375; 99284; A9500; G0378; J0280; J1650; J1815; J2060; J2270; J2405; J2785; J7030; J7040

== ENCOUNTER 2019-08-30 13:19 | Emergency (ER) | payer MEDICARE, MEDICAID, SELFPAY ==
[2019-08-30 13:26] VITALS: BP 163/87; PULSE 86; RESP 16; TEMP 36.7; O2SAT 96; BMI 47.0
--- NOTE | 2019-08-30 13:27 | XR_ITS ---
WS: [id number] XR chest 1V portable [id number] REASON FOR EXAM: cp FINDINGS: The heart and mediastinal interfaces normal. The lung roche are well aerated. No pneumothorax, pleural effusion, no pneumonia no masses. Hilum and apices normal. No osseous abnormalities. XR/XR chest 1V portable [id number] IMPRESSION: Negative chest for active pathology.
--- NOTE | 2019-08-30 13:27 | ECG_ITS ---
Measurements Intervals [place] Rate: 82 P: 41 IL: 167 QRS: 16 QRSD: 108 T: 18 QT: 402 QTc: 472 SINUS RHYTHM WITH FREQUENT VENTRICULAR PREMATURE COMPLEXES INCOMPLETE RIGHT BUNDLE BRANCH BLOCK [90+ ms QRS DURATION, TERMINAL R IN V1/V2, 40+ ms S IN I/aVL/V4/V5/V6] ABNORMAL RHYTHM ECG Compared to ECG 08/04/2019 00:01:47 Ventricular premature complex(es) now present Sinus arrhythmia no longer present T-wave abnormality no longer present Possible ischemia no longer present Electronically Signed On 08-30-2019 17:23:43 CDT by Pablo Baker M.D. [id number]
--- NOTE | 2019-08-30 14:17 | ED_ITS ---
Entered by Gloria Roy, acting as scribe for Holger Plasencia MD Aug 30, 2019 13:19 HPI - Chest Pain General: Chief Complaint: Chest Pain Stated Complaint: CP Time Seen by Provider: 08/30/19 14:16 Source: patient Mode of arrival: ambulatory Limitations: no limitations History of Present Illness: HPI narrative: 49-year-old female who has been having chest pain for months. She was admitted 3 weeks ago and had a negative stress test at that time. She states she is continued to have pain and now the nitro was causing her some headaches. She states she woke up this morning with a migraine that was a 9 out of 10. She states she has had some mild chest pains as well. She had nausea with her headaches. Denies any shortness of breath at this time. complaint: chest pain and other (headache, nausea, vomiting) Onset (ago): day(s) Timing of current episode: constant and still present Prior episodes: No Onset: during rest Pain location: substernal Pain radiation: none Severity: moderate Quality: tightness Relieving factors: nothing Exacerbating factors: nothing Associated symptoms: Reports nausea and vomiting; Deny dyspnea or fever(s) Treatment prior to arrival: none Review of Systems Const: Denies: fever, chills, body aches or change in appetite Eyes: Denies: photophobia ENMT: Denies: enlarged tonsils Card: Reports: chest pain Resp: Denies: shortness of breath GI: Reports: nausea and vomiting : Denies: painful urination Musc: Denies: joint warmth Skin/Breast: Denies: rash Neuro: Reports: headache Psych: Denies: depression Alvin/Lymph: Denies: easy bruising All/Imm: Denies: hives PFS ED PFSH: Medical History (Updated 08/30/19 @ 16:31 by Holger Plasencia MD) Anxiety Asthma CKD (chronic kidney disease) Degenerative disc disease Diabetes Hypertension Obstructive sleep apnea Sleep apnea Surgical History (Updated 08/03/19 @ 20:57 by Lolly Webb MD) History of ankle surgery History of cholecystectomy History of hysterectomy History of tonsillectomy Family History (Updated 08/03/19 @ 20:57 by Lolly Webb MD) Other CAD (coronary artery disease) Cancer Diabetes Social History (Updated 08/03/19 @ 22:53 by Nhung Bateman RN) Smoking and tobacco status: never smoked Alcohol intake: current Alcohol intake frequency: few times a week Physical Exam Const: COMMON NORMALS: no apparent distress, oriented x3 and healthy appearing HENMT: COMMON NORMALS: normocephalic and head/scalp atraumatic HEAD & SCALP: normocephalic and atraumatic Eye: COMMON NORMALS: PERRL and EOMs intact bilaterally PUPIL: Yes PERRL Neck/C-Spine: COMMON NORMALS: full ROM and supple Resp: COMMON NORMALS: normal respiratory effort, no retractions, no use of accessory muscles and clear to auscultation bilaterally AUSCULTATION: clear to auscultation bilaterally GI: COMMON NORMALS: normal to inspection, nondistended, normoactive bowel sounds, soft to palpation, non-tender and no masses PALPATION: Yes soft Extremity: COMMON NORMALS: normal to inspection and full ROM Neuro: COMMON NORMALS: oriented x3, moves all extremities and no focal motor deficits Psych: COMMON NORMALS: mental status grossly normal, thought process normal and cooperative THOUGHT PROCESS: normal thought process Skin: COMMON NORMALS: no rashes or lesions noted and no wounds GENERAL SKIN EXAM: no rashes or lesions noted Course Vital Signs: Vital signs: Vital Signs Temperature 98.1 F 08/30/19 13:26 Pulse Rate 86 08/30/19 13:26 Respiratory Rate 17 08/30/19 14:25 Blood Pressure 163/87 08/30/19 13:26 Pulse Oximetry 96 08/30/19 13:26 MDM - Chest Pain MDM Narrative: Medical decision making narrative: Patient presents here with chest pain along with headache. Patient's chest pain is atypical initial and repeat troponin here negative. She has follow-up with Dr. Contreras at the end of the month I feel she is stable for discharge. She has no signs of pulmonary embolism. She does have a headache from her nitro and her headache is much improved. Will prescribe her Fioricet and she is stable for discharge. She is to return if worsening. Lab Data: Labs: Lab Results 08/30/19 08/30/19 08/30/19 Range/Units 14:16 14:16 14:16 WBC 9.4 (4.0-10.0) 10^3/ uL RBC 4.97 (4.1-5.3) 10^6/u L Hgb 14.2 (11.5-15.3) g/dL Hct 45.0 (37.0-47.0) % MCV 90.5 (81-99) fL MCH 28.6 (28.0-34.0) pg MCHC 31.6 (30.0-36.0) g/dL RDW 13.9 (12.1-15.1) % Plt Count 278 (130-400) 10^3/c mm MPV 9.6 (7.4-10.4) fL Neut % (Auto) 80.9 % Lymph % (Auto) 13.5 % Glades % (Auto) 4.4 % Eos % (Auto) 0.7 % Baso % (Auto) 0.3 % Neut # (Auto) 7.6 (1.8-7.7) 10^3/u L Lymph # (Auto) 1.3 (0.8-4.8) 10^3/u L Glades # (Auto) 0.4 (0.2-0.9) 10^3/u L Eos # (Auto) 0.1 (0.0-0.8) 10^3/u L Baso # (Auto) 0.0 (0.0-0.1) 10^3/u L Nucleated RBC % (a uto) 0 % Nucleated RBCs # 0.0 /100WBC Sodium 141 (136-145) mmol/L Potassium 4.4 (3.5-5.1) mmol/L Chloride 103 (98-107) mmol/L Carbon Dioxide 27 (22-29) mmol/L Anion Gap 15.4 (5-19) BUN 9 (6-20) mg/dL Creatinine 0.7 (0.5-0.9) mg/dL GFR Calculation 89.3 L (90-130) mL/min Glucose 136 H (65-115) mg/dL Calculated Osmolal ity 290 (285-295) mOsm/k g Calcium 9.8 (8.5-10.5) mg/dL Total Bilirubin 0.5 (0.15-1.2) mg/dL AST 14 (0-32) U/L ALT 14 (0-33) U/L Alkaline Phosphata se 93 (35-105) IU/L Troponin T Baselin e 7 (0-10) ng/mL Troponin T 120 Min absentee-shawnee (0-10) ng/mL Total Protein 8.7 (6.6-8.7) g/dL Albumin 4.5 (3.5-5.2) g/dL Globulin 4.2 (1.3-4.6) g/dL / Range/Units 16:00 WBC (4.0-10.0) 10^3/ uL RBC (4.1-5.3) 10^6/u L Hgb (11.5-15.3) g/dL Hct (37.0-47.0) % MCV (81-99) fL MCH (28.0-34.0) pg MCHC (30.0-36.0) g/dL RDW (12.1-15.1) % Plt Count (130-400) 10^3/c mm MPV (7.4-10.4) fL Neut % (Auto) % Lymph % (Auto) % Glades % (Auto) % Eos % (Auto) % Baso % (Auto) % Neut # (Auto) (1.8-7.7) 10^3/u L Lymph # (Auto) (0.8-4.8) 10^3/u L Glades # (Auto) (0.2-0.9) 10^3/u L Eos # (Auto) (0.0-0.8) 10^3/u L Baso # (Auto) (0.0-0.1) 10^3/u L Nucleated RBC % (a uto) % Nucleated RBCs # /100WBC Sodium (136-145) mmol/L Potassium (3.5-5.1) mmol/L Chloride (98-107) mmol/L Carbon Dioxide (22-29) mmol/L Anion Gap (5-19) BUN (6-20) mg/dL Creatinine (0.5-0.9) mg/dL GFR Calculation (90-130) mL/min Glucose (65-115) mg/dL Calculated Osmolal ity (285-295) mOsm/k g Calcium (8.5-10.5) mg/dL Total Bilirubin (0.15-1.2) mg/dL AST (0-32) U/L ALT (0-33) U/L Alkaline Phosphata se (35-105) IU/L Troponin T Baselin e (0-10) ng/mL Troponin T 120 Min absentee-shawnee 7.41 (0-10) ng/mL Total Protein (6.6-8.7) g/dL Albumin (3.5-5.2) g/dL Globulin (1.3-4.6) g/dL Imaging Data^: CXR: Attestation: I personally reviewed and interpreted this imaging study as follows: Radiologist's impression: [address] [address] XRay Report Signed Patient: Diamond Lin Unit #: [id number] : 1970 Age/Sex: 49 / F ADM Date: 08/30/19 Loc: ER Room/Bed: Attending Dr: Ordering Provider/Ordering MD: Holger Plasencia MD Date of Service: 08/30/19 Procedure(s): XR chest 1V portable [id number] Accession Number(s): [id number] Report Number: [id number] WS: [id number] XR chest 1V portable [id number] REASON FOR EXAM: cp FINDINGS: The heart and mediastinal interfaces normal. The lung roche are well aerated. No pneumothorax, pleural effusion, no pneumonia no masses. Hilum and apices normal. No osseous abnormalities. XR/XR chest 1V portable [id number] IMPRESSION: Negative chest for active pathology. EKG Data^: EKG 1: Attestation: I personally reviewed and interpreted this EKG as follows: EKG interpretation date: 08/30/19 EKG interpretation time: 13:38 Interpretation: nsr hr [address] or t wave abnormalities qrs 113 qtc 470 EKG 2: Attestation: I personally reviewed and interpreted this EKG as follows: EKG interpretation date: 08/30/19 EKG interpretation time: 15:32 Interpretation: nsr hr [address] or t wave abnormalities qrs 113 qtc 470 Discharge Plan Discharge Patient Disposition: Home, Self-Care Clinical Impression: Headache Chest pain Qualifiers: Chest pain type: other chest pain Qualified Code(s): R07.89 - Other chest pain Condition: Stable Prescriptions: New Fioricet 50-300-40 mg capsule 1 cap PO Q8H PRN (Reason: headache) Qty: 20 RF: 0 No Action amlodipine 10 mg tablet 10 mg PO DAILY RF: 0 cetirizine [Zyrtec] 10 mg tablet 10 mg PO DAILY RF: 0 zolpidem [Ambien] 10 mg Tablet 10 mg PO PRN PRN (Reason: Insomnia) RF: 0 isosorbide mononitrate 30 mg tablet extended release 24 hr 30 mg PO DAILY 30 Days Qty: 30 RF: 0 ondansetron HCl [Zofran] 4 mg tablet 4 mg PO Q6H PRN (Reason: nausea and vomiting) Qty: 30 RF: 0 Byetta 10 mcg/dose(250 mcg/mL) 2.4 mL Pen Injector 10 mcg SUBCUT BID RF: 0 omeprazole 20 mg Capsule,Delayed Release(Dr/Ec) 20 mg PO BEDTIME RF: 0 Discharge Orders: Discharge Order (Routine); Ordered 08/30/19 Ordered By: Holger Plasencia Referrals: Emmy Sandoval MD [Primary Care Provider] - Discharge Diet: Advance as tolerated Discharge Activity: Resume usual activity Patient Instructions: Chest Pain (ED), Acute Headache (ED) Coding Level of Care Code ED Drafter Apprentice for Chg Fwd Exam Comprehensive The documentation recorded by the Kirill parekh Bridget Annette, accurately reflects the service I personally performed and the decisions made by Erinn hunter Korby, MD Aug 30, 2019 13:19
[2019-08-30 14:23] LABS: Basophils % 0.3 %; Eosinophils # 0.1 10^3/uL (0.0-0.8); Eosinophils % 0.7 %; Hemoglobin 14.2 g/dL (11.5-15.3); Lymphocytes # 1.3 10^3/uL (0.8-4.8); Lymphocytes % 13.5 %; Mean Corpuscular HGB Conc 31.6 g/dL (30.0-36.0); Mean Corpuscular Hemoglobin 28.6 pg (28.0-34.0); Mean Corpuscular Volume 90.5 fL (81-99); Mean Platelet Volume 9.6 fL (7.4-10.4); Monocytes # 0.4 10^3/uL (0.2-0.9); Monocytes % 4.4 %; Neutrophils # 7.6 10^3/uL (1.8-7.7); Neutrophils % 80.9 %; Nucleated Red Blood Cells % 0 %; Platelet Count 278 10^3/cmm (130-400); Red Blood Count 4.97 10^6/uL (4.1-5.3); Red Cell Distribution Width 13.9 % (12.1-15.1); White Blood Count 9.4 10^3/uL (4.0-10.0)
[2019-08-30 14:25] VITALS: RESP 17
[2019-08-30] MEDS: diphenhydrAMINE 50 mg/mL SDV 1mL IVP (14:40)
[2019-08-30] MEDS: metoclopramide 5 mg/mL SDV 2 mL 10 MG IVP (14:40)
[2019-08-30] MEDS: aspirin 81 mg Chew Tablet 324 MG PO (14:40)
[2019-08-30 14:44] LABS: Alanine Aminotransferase 14 U/L (0-33); Albumin Level 4.5 g/dL (3.5-5.2); Alkaline Phosphatase 93 IU/L (35-105); Anion Gap 15.4 (5-19); Aspartate Amino Transferase 14 U/L (0-32); Blood Urea Nitrogen 9 mg/dL (6-20); Calcium 9.8 mg/dL (8.5-10.5); Carbon Dioxide 27 mmol/L (22-29); Chloride 103 mmol/L (98-107); Globulin 4.2 g/dL (1.3-4.6); Glomerular Filtration Rate 89.3 mL/min (90-130); Glucose 136 mg/dL (65-115); Osmolality Calculated 290 mOsm/kg (285-295); Potassium 4.4 mmol/L (3.5-5.1); Sodium 141 mmol/L (136-145); Total Bilirubin 0.5 mg/dL (0.15-1.2); Total Protein 8.7 g/dL (6.6-8.7)
[2019-08-30 14:45] LABS: Troponin(5th) Baseline 7 ng/mL (0-10)
--- NOTE | 2019-08-30 15:27 | ECG_ITS ---
Measurements Intervals [place] Rate: 78 P: 44 [place]: 168 QRS: 25 QRSD: 113 T: 33 QT: 436 QTc: 499 SINUS RHYTHM WITH FREQUENT VENTRICULAR PREMATURE COMPLEXES IN A BIGEMINAL PATTERN INCOMPLETE RIGHT BUNDLE BRANCH BLOCK [90+ ms QRS DURATION, TERMINAL R IN V1/V2, 40+ ms S IN I/aVL/V4/V5/V6] ABNORMAL RHYTHM ECG Compared to ECG 08/04/2019 00:01:47 Ventricular premature complex(es) now present Sinus arrhythmia no longer present T-wave abnormality no longer present Possible ischemia no longer present Electronically Signed On 08-30-2019 17:25:48 CDT by Pablo Baker M.D. [email or web address]
[2019-08-30 16:28] LABS: Troponin 5 2HR 7.41 ng/mL (0-10); Troponin 5 2HR Delta 0.41 ABS# (0-10)
[2019-08-30 16:55] VITALS: BP 158/68; PULSE 78; RESP 16; O2SAT 96
== END 2019-08-30 16:56 | disposition home or self-care (01) ==
PROVIDERS: Emergency Provider Emergency Medicine; Family Provider Family Medicine; PCP Family Medicine
DX: R07.89 Other chest pain (principal); R51 Headache; I12.9 Hypertensive chronic kidney disease with stage 1 through stage 4 chronic kidney disease, or unspecified chronic kidney disease; N18.9 Chronic kidney disease, unspecified; E11.22 Type 2 diabetes mellitus with diabetic chronic kidney disease; J45.909 Unspecified asthma, uncomplicated; Z82.49 Family history of ischemic heart disease and other diseases of the circulatory system
CPT/HCPCS: 12345; 36415; 71045; 80053; 84484; 85025; 93005; 96374; 96375; 99282; 99284; J1200; J2765

== ENCOUNTER 2019-10-04 09:15 | Outpatient (CLI) | payer MEDICARE, MEDICAID, SELFPAY ==
--- NOTE | 2019-10-04 09:30 | USCV_ITS ---
Diamond Lin Age: 49 Gender: F : 1970 Exam Date: 10/04/2019 09:40 Ordering Phys: Alin Castellano MD ([email or web address]) Technologist: Monica Espinal Exam Location: [facility] [place] [facility] [place] Indication: sob BP: / HR: 62 Rhythm: Sinus Technical Quality: Adequate MEASUREMENTS (Male / Female) Normal Values 2D ECHO LV Diastolic Diameter PLAX 4.1 cm 4.2 - 5.9 / 3.9 - 5.3 cm LV Systolic Diameter PLAX 2.3 cm IVS Diastolic Thickness 1.5 cm 0.6 - 1.0 / 0.6 - 0.9 cm IVS Systolic Thickness 2.2 cm LVPW Diastolic Thickness 1.4 cm 0.6 - 1.0 / 0.6 - 0.9 cm LVPW Systolic Thickness 2.5 cm LVOT Diameter 2.1 cm LV Ejection Fraction 2D Teich 76.8 % LV Ejection Fraction MOD 2C 75.7 % LV Ejection Fraction 2C AL 77.9 % LA Diameter 3.5 cm LA Width 3.0 cm LA Height 4.8 cm RA Width 2.9 cm RA Height 4.1 cm M-MODE LV Diastolic Diameter MM 5.4 cm 4.2 - 5.9 / 3.9 - 5.3 cm LV Systolic Diameter MM 3.0 cm LV Ejection Fraction MM Teich 74.2 % IVS Diastolic Thickness MM 1.0 cm 0.6 - 1.0 / 0.6 - 0.9 cm IVS Systolic Thickness MM 1.5 cm LVPW Diastolic Thickness MM 1.1 cm 0.6 - 1.0 / 0.6 - 0.9 cm LVPW Systolic Thickness MM 1.8 cm Aortic Annulus Diameter 3.1 cm LA Ao Ratio MM 1.1 MV E Point Septal Separation 0.3 cm DOPPLER AV Peak Velocity 157.0 cm/s LVOT Peak Velocity 91.0 cm/s AV Area Cont Eq vti 2.2 cm squared AV Area Cont Eq pk 2.1 cm squared MV Peak Velocity 135.0 cm/s MV Area PHT 2.9 cm squared Mitral E to A Ratio 0.8 MV E' Velocity 7.0 cm/s Mitral E to MV E' Ratio 12.7 Mitral E to LV E' Lateral Ratio 13.4 Mitral E to LV E' Septal Ratio 12.1 TR Peak Velocity 101.0 cm/s TR Peak Gradient 4.1 mmHg Right Atrial Pressure 3.0 mmHg Pulmonary Artery Systolic Pressu 7.1 mmHg PV Peak Velocity 88.0 cm/s RV Acceleration Time 0.1 s FINDINGS Left Ventricle Normal left ventricular cavity size. Normal left ventricular systolic function. No regional wall motion abnormalities. Left ventricular ejection fraction is estimated at 65 %. Grade I/IV diastolic dysfunction (abnormal relaxation filling pattern), normal to mildly elevated filling pressures. Right Ventricle The right ventricle is normal in size and function. Right Atrium The right atrium is normal in size. Left Atrium Moderately increased left atrial size. Mitral Valve Moderately thickened mitral valve. Moderate mitral annular calcification. No mitral valve stenosis. Moderate mitral valve regurgitation. Aortic Valve Moderate aortic valve calcification. Mild aortic valve stenosis, mean gradient 5.4 mmHg, HARDEEP 2.2 cm squared. Tricuspid Valve Mild tricuspid valve regurgitation. Pulmonic Valve Structurally normal pulmonic valve without significant stenosis. There is no pulmonic regurgitation. Pericardium Normal pericardium without effusion. Aorta Normal ascending aorta dimension. CONCLUSIONS 1-Normal left ventricular cavity size. Normal left ventricular systolic function. No regional wall motion abnormalities. Left ventricular ejection fraction is estimated at 65 %. Grade I/IV diastolic dysfunction (abnormal relaxation filling pattern), normal to mildly elevated filling pressures. 2-Moderately thickened mitral valve. Moderate mitral annular calcification. No mitral valve stenosis. Moderate mitral valve regurgitation. 3-Moderately increased left atrial size. 4-Moderate aortic valve calcification. Mild aortic valve stenosis, mean gradient 5.4 mmHg, HARDEEP 2.2 cm squared. 5-Mild tricuspid valve regurgitation. 6-There is no pericardial effusion. 7-Right atrial pressure is around 5 mm of mercury. 8-There are no prior echocardiogram studies to compare. Alin Castellano MD (Electronically Signed) Final Date: 05 October 2019 18:02 S
== END 2019-10-04 09:16 | disposition home or self-care (01) ==
LOC: RAD 09:19
PROVIDERS: Family Provider Family Medicine; PCP Family Medicine; Visit Provider Internal Medicine Cardiovascular Disease
DX: R06.02 Shortness of breath (principal); I05.9 Rheumatic mitral valve disease, unspecified; I70.0 Atherosclerosis of aorta; I07.1 Rheumatic tricuspid insufficiency
CPT/HCPCS: 93306

== ENCOUNTER 2019-11-09 19:44 | Emergency (ER) | payer MEDICARE, MEDICAID, SELFPAY ==
--- NOTE | 2019-11-09 19:52 | XR_ITS ---
WS: [id number] RIGHT FOOT: 3 VIEW(S) TECHNIQUE: AP, oblique and lateral. HISTORY: injury COMPARISON: 04/13/2019 Nondisplaced fracture through the proximal phalanx of the fifth toe. Mild degenerative changes in the midfoot. Normal tarsal/metatarsal alignment. No soft tissue abnormality or bone destruction. XR/XR foot RT min 3V* [id number] IMPRESSION: Nondisplaced fracture proximal phalanx fifth toe.
[2019-11-09 19:56] VITALS: BP 190/144; PULSE 78; RESP 18; TEMP 36.3; O2SAT 97; BMI 46.3
--- NOTE | 2019-11-09 20:28 | ED_ITS ---
HPI - Extremity Problem General: Chief complaint: Extremity Injury, Lower Stated complaint: right foot injury Time Seen by Provider: 11/09/19 20:22 History of Present Illness: HPI Narrative: Diamond is a 49-year-old female who comes in complaining of right foot pain.She states she injured it 2 weeks ago and had a hematoma that is gradually getting better but she still has pain. She states when she moves her foot in certain positions she has a burning pain. She denies any distal numbness, tingling or weakness. Associated symptoms: Deny chest pain, fever(s) or rash Review of Systems Const: Denies: fever(s), chills, body aches, fatigue, malaise, night sweats or diaphoresis Eyes: Denies: change in vision, blurry vision or blind spots ENMT: Denies: throat pain, odynophagia, hoarseness, ear or mastoid pain, ear discharge, change in hearing or nasal discharge Card: Denies: chest pain, palpitations, irregular heart rhythm, lighthea dedness, syncope, pre-syncope, dyspnea on exertion or orthopnea Resp: Denies: dyspnea, productive cough, non-productive cough, wheezing, hemoptysis or chest congestion GI: Denies: abdominal pain, nausea, vomiting, hematemesis, coffee ground emesis, heartburn, diarrhea, constipation, GI cramping, hematochezia or melena : Denies: flank pain, dysuria, urinary frequency, urinary urgency, oliguria, urinary incontinence or hematuria Musc: Denies: neck pain, back pain, extremity swelling, joint pain, joint swelling, joint redness, joint warmth or joint stiffness Skin/Breast: Denies: rash, pruritus, erythema, skin tenderness or jaundice Neuro: Denies: headache(s), numbness in extremities, weakness in extremities, sensory changes, lack of coordination, difficulty walking, dizziness, vertigo, confusion or Slurred speech present Endo: Denies: polyuria, polydipsia, tired all the time, cold intolerance, excessive sweating, flushing, hot flashes or heat intolerance Alvin/Lymph: Denies: easy bruising, easy bleeding, petechiae, purpura or enlarged lymph nodes All/Imm: Denies: urticaria, throat swelling, tongue swelling, facial swelling or acute wheezing PFSH ED PFSH: Medical History Anxiety Asthma CKD (chronic kidney disease) Degenerative disc disease Diabetes Hypertension Obstructive sleep apnea Shortness of Breath Sleep apnea Surgical History History of ankle surgery History of cholecystectomy History of hysterectomy History of tonsillectomy Family History Other CAD (coronary artery disease) Cancer Diabetes Social History Smoking and tobacco status: never smoked Alcohol intake: current Alcohol intake frequency: few times a week Physical Exam Extremity: NARRATIVE EXTREMITY EXAM: Right foot with contusion noted. Strong DP and PT pulses noted. Capillary refill normal. Tenderness to palpation over the metatarsals medial and lateral. No gross deformity. Course Vital Signs: Vital signs: Vital Signs Temperature 97.4 F L 11/09/19 19:56 Pulse Rate 78 11/09/19 19:56 Respiratory Rate 18 11/09/19 19:56 Blood Pressure 190/144 11/09/19 19:56 Pulse Oximetry 97 11/09/19 19:56 MDM - Extremity (Nontraumatic) MDM Narrative: Medical decision making narrative: Patient has no evidence of fracture on x-ray. I believe this is just a contusion with possibly a neuropraxia that is getting better. Please the patient on patches and made nonweightbearing until she can follow-up with Minh Tapia her tin dipper for reevaluation. Discharge Plan Discharge Patient Disposition: Home, Self-Care Clinical Impression: Contusion of foot, right Qualifiers: Encounter type: initial encounter Qualified Code(s): S90.31XA - Contusion of right foot, initial encounter Condition: Stable Prescriptions: No Action isosorbide mononitrate 30 mg tablet extended release 24 hr 30 mg PO DAILY RF: 0 fluticasone propionate [Flonase Allergy Relief] 50 mcg/actuation spray,suspension 1 spray INTRANASAL DAILY RF: 0 diclofenac sodium [Voltaren] 1 % gel 2 gm TOPICAL QID RF: 0 Flovent HFA 110 mcg/actuation HFA aerosol inhaler 1 puff INHALATION BID RF: 0 albuterol sulfate [ProAir HFA] 90 mcg/actuation HFA aerosol inhaler 2 puff INHALATION Q6H PRNRF: 0 ipratropium-albuterol 18-103 mcg/actuation aerosol INHALATION RF: 0 amlodipine 10 mg tablet 10 mg PO DAILY RF: 0 cetirizine [Zyrtec] 10 mg tablet 10 mg PO DAILY RF: 0 benzonatate [Tessalon Perles] 100 mg capsule 100 mg PO TID PRN (Reason: cough) Qty: 30 RF: 0 montelukast [Singulair] 10 mg tablet 10 mg PO DAILY Qty: 30 RF: 3 zolpidem [Ambien] 10 mg tablet 10 mg PO PRN PRN (Reason: Insomnia) Qty: 30 RF: 0 ondansetron HCl [Zofran] 4 mg tablet 4 mg PO Q6H PRN (Reason: nausea and vomiting) Qty: 30 RF: 0 Byetta 10 mcg/dose(250 mcg/mL) 2.4 mL Pen Injector 10 mcg SUBCUT BID RF: 0 omeprazole 20 mg Capsule,Delayed Release(Dr/Ec) 20 mg PO BEDTIME RF: 0 Discharge Orders: Discharge Order (Routine); Ordered 11/09/19 Ordered By: Bren Valente Referrals: Siddhartha Tapia DPM [Physician] - 1-3 days Emmy Sandoval MD [Physician] - Discharge Diet: Usual diet Discharge Activity: Limit activity as instructed Patient Instructions: Foot Contusion (ED) Activity Restrictions/Additional Instructions: Please return to the ER immediately for any of the signs or symptoms listed on your discharge instruction sheets, worsening/changing of your symptoms, you are not getting better as quickly as expected, or for ANY other cause or concerns. Use your crutches at all time and Jan wrap as needed. Do not bear weight on your foot if it causes pain. Follow-up with Minh Tapia as soon as possible for recheck. Discharge Date/Time: 11/09/19 21:15 Coding Level of Care Code ED Automotive Product Engineer for Lizbet Cobb
[2019-11-09] MEDS: HYDROcodone-acetaminophen 5-325 mg Tablet 1 TAB PO (20:52)
--- NOTE | 2019-11-11 10:08 | DCPLANNER ---
food and beverage operations manager had message to schedule a follow up appointment for patient with ortho. food and beverage operations manager called the ortho clinic, spoke with Yoselyn, gave clinic patients information. food and beverage operations manager was told that patients information would be printed and reviewed. Clinic will call patient case coordinator and patient with appointment information.
--- NOTE | 2019-11-16 07:55 | DCPLANNER ---
Patient has a follow up appointment scheduled with ortho for Friday, November 17, 2019 at 2:[address] Tapia. Clinic will call patient with appointment information.
--- NOTE | 2019-12-15 13:07 | DCPLANNER ---
Patient did attend appointment scheduled with ortho, scheduled for 11.17.19.
--- NOTE | 2019-12-15 13:09 | DCPLANNER ---
Patient did attend appointment scheduled for 11.17.19 with ortho.
== END 2019-11-09 21:15 | disposition home or self-care (01) ==
LOC: ER 20:50
PROVIDERS: Emergency Provider Emergency Medicine; PCP Nurse Practitioner Family
DX: S90.31XA Contusion of right foot, initial encounter (principal); X58.XXXA Exposure to other specified factors, initial encounter; E11.9 Type 2 diabetes mellitus without complications; I10 Essential (primary) hypertension
CPT/HCPCS: 12345; 73630; 99281; 99283; E0114

== ENCOUNTER → 2019-11-17 14:59 | Outpatient (BNVA) | payer MEDICARE, MEDICAID, SELFPAY | PROVIDERS: PCP Nurse Practitioner Family; Visit Provider Podiatrist Foot & Ankle Surgery | DX: S92.511A Displaced fracture of proximal phalanx of right lesser toe(s), initial encounter for closed fracture (principal); M79.671 Pain in right foot; X58.XXXA Exposure to other specified factors, initial encounter | CPT/HCPCS: 73630 ==

== ENCOUNTER 2019-11-17 15:26 | Outpatient (CLI) | payer MEDICARE, MEDICAID, SELFPAY | END 2019-11-17 15:27 | disposition home or self-care (01) | LOC: SPT 15:27 | PROVIDERS: PCP Nurse Practitioner Family; Visit Provider Podiatrist Foot & Ankle Surgery | DX: Z46.89 Encounter for fitting and adjustment of other specified devices (principal); S92.511D Displaced fracture of proximal phalanx of right lesser toe(s), subsequent encounter for fracture with routine healing; X58.XXXD Exposure to other specified factors, subsequent encounter; S92.511A Displaced fracture of proximal phalanx of right lesser toe(s), initial encounter for closed fracture; M79.671 Pain in right foot; X58.XXXA Exposure to other specified factors, initial encounter | CPT/HCPCS: 73630; 97760; L4361 ==

== ENCOUNTER 2019-11-25 11:00 | Outpatient (CLI) | payer MEDICARE, MEDICAID, SELFPAY | END 2019-11-25 11:01 | disposition home or self-care (01) | LOC: SLEEP 11-26 11:00 | PROVIDERS: PCP Nurse Practitioner Family; Visit Provider Nurse Practitioner Family | DX: R53.83 Other fatigue (principal) | CPT/HCPCS: 94762 ==

== ENCOUNTER → 2019-12-06 14:24 | Outpatient (BNVA) | payer MEDICARE, MEDICAID, SELFPAY | PROVIDERS: PCP Nurse Practitioner Family; Visit Provider Nurse Practitioner Family | DX: R04.2 Hemoptysis (principal) | CPT/HCPCS: 71046; 80053; 85025 ==

== ENCOUNTER → 2019-12-07 14:11 | Outpatient (BNVA) | payer MEDICARE, MEDICAID, SELFPAY | PROVIDERS: PCP Nurse Practitioner Family; Visit Provider Podiatrist Foot & Ankle Surgery | DX: S92.511D Displaced fracture of proximal phalanx of right lesser toe(s), subsequent encounter for fracture with routine healing (principal); M79.671 Pain in right foot; W22.09XD Striking against other stationary object, subsequent encounter | CPT/HCPCS: 73630 ==

== ENCOUNTER 2019-12-15 13:06 | Outpatient (CLI) | payer MEDICARE, MEDICAID, SELFPAY ==
[2019-12-15] MEDS: iohexol 300 mg/mL 50 mL Btl PO (13:57)
--- NOTE | 2019-12-15 14:30 | CT_ITS ---
WS: [id number] CT CHEST, ABDOMEN AND PELVIS WITH CONTRAST HISTORY: hemoptysis, cough, abdominal pain TECHNIQUE: Contiguous 5 mm axial imaging performed through the chest, abdomen and pelvis with IV cont rast, oral contrast has been provided. Coronal and sagittal reformats chest. Coronal and sagittal ref ormats through the abdomen and pelvis. All CT scans at [facility] use at least one of the se dose optimization techniques: automated exposure control; mA and/or kV adjustment per patient size (includes targeted exams where dose is matched to clinical indication); or iterative reconstruction. CONTRAST: Omnipaque 300; 95 mL IV. DLP: 2613.16 mGycm COMPARISON: 07/08/[address]: Lungs are clear. No pneumonia or nodule. No pericardial or pleural effusion. Normal-sized t horacic aorta with no aneurysm. Normal pulmonary artery size. Small hiatal hernia. Abdomen CT: Prior cholecystectomy. Mild hepatic steatosis along the falciform ligament. Pancreas, spl een and adrenal glands are normal. Bilateral cortical hypodensities within each kidney are too small to characterize. No obstruction. No ascites or adenopathy. Normal appendix. No GI tract obstruction. Pelvic CT: No free fluid in the pelvis. Urinary bladder is not distended. No adenopathy. No osteoblastic or osteolytic bone disease. CT/CT chest abd pel w con* IMPRESSION: 1. Negative chest, abdomen and pelvis for acute abnormality. No adenopathy or mass is identified. 2. Small to characterize hypodensities in each kidney. 3. Small hiatal hernia. 4. No pneumonia.
[2019-12-15] MEDS: iohexol 300 mg/mL 100 mL Btl IV (14:37)
== END 2019-12-15 13:07 | disposition home or self-care (01) ==
PROVIDERS: Family Provider Nurse Practitioner Family; PCP Nurse Practitioner Family; Visit Provider Nurse Practitioner Family
DX: R04.2 Hemoptysis (principal); R10.9 Unspecified abdominal pain; K44.9 Diaphragmatic hernia without obstruction or gangrene
CPT/HCPCS: 71260; 74177; Q9967

== ENCOUNTER → 2019-12-22 14:21 | Outpatient (BNVA) | payer MEDICARE, MEDICAID, SELFPAY | PROVIDERS: Family Provider Nurse Practitioner Family; PCP Nurse Practitioner Family; Visit Provider Nurse Practitioner Family | DX: R10.9 Unspecified abdominal pain (principal) | CPT/HCPCS: 81000 ==

== ENCOUNTER 2019-12-29 14:49 | Outpatient (CLI) | payer MEDICARE, MEDICAID, SELFPAY ==
--- NOTE | 2019-12-29 14:57 | XR_ITS ---
WS: [id number] Right foot, 3 views, 12/29/2019 Clinical Data: fracture Comparison: Right foot, 12/07/2019. Findings: The fracture of the right fifth proximal phalanx remains in the same position. No other fractures are seen. There is a small Achilles spur and plantar spur. XR/XR foot RT min 3V* [id number] Impression: No change in position of oblique fracture of proximal phalanx of the right fift h toe.
== END 2019-12-29 14:50 | disposition home or self-care (01) ==
PROVIDERS: Family Provider Nurse Practitioner Family; PCP Nurse Practitioner Family; Visit Provider Podiatrist Foot & Ankle Surgery
DX: S92.511A Displaced fracture of proximal phalanx of right lesser toe(s), initial encounter for closed fracture (principal); X58.XXXA Exposure to other specified factors, initial encounter; M77.31 Calcaneal spur, right foot
CPT/HCPCS: 73630

== ENCOUNTER 2020-01-02 16:30 | Observation (INO) | payer MEDICARE, MEDICAID, SELFPAY ==
[2020-01-02] VITALS (11 sets, daily range): BP systolic 129–173; BP diastolic 63–91; PULSE 57–72; RESP 16–20; TEMP 36.7–36.9; O2SAT 91–97; BMI 44.6
--- NOTE | 2020-01-02 16:48 | XRR_ITS ---
PROCEDURE INFORMATION: Exam: XR Chest, 1 View Exam date and time: 01/02/2020 4:49 PM Age: 49 years old Clinical indication: Chest pain; Type not specified; Additional info: Cp TECHNIQUE: Imaging protocol: XR of the chest Views: 1 view. COMPARISON: CT chest abd pel w con* 12/15/2019 2:34 PM FINDINGS: Lungs: Unremarkable. No consolidation. Pleural space: Unremarkable. No pleural effusion. No pneumothorax. Heart/Mediastinum: Unremarkable. No cardiomegaly. Bones/joints: Unremarkable. XR/XR chest 1V portable [id number] IMPRESSION: No acute findings.
--- NOTE | 2020-01-02 16:48 | ECG_ITS ---
[facility] Test Date: 2020-01-02 Pat Name: Diamond Lin Department: Room: Gender: Female [employer] Disability Teacher: : 1970 Requested By: Zahra Murphy Order Number: [id number] Aly MD: Alin Castellano M.D. Measurements Intervals [place] Rate: 64 P: 41 [place]: 168 QRS: 7 QRSD: 113 T: 7 QT: 422 QTc: 437 Interpretive Statements SINUS RHYTHM WITH OCCASIONAL VENTRICULAR PREMATURE COMPLEXES INCOMPLETE RIGHT BUNDLE BRANCH BLOCK [90+ ms QRS DURATION, TERMINAL R IN V1/V2, 40+ ms S IN I/aVL/V4/V5/V6] INTERPRETATION BASED ON A DEFAULT AGE OF 40 YEARS Compared to ECG 08/30/2019 15:32:37 No significant changes Electronically Signed On 01-02-2020 22:03:51 CDT by Alin Castellano M.D. [id number]
[2020-01-02] MEDS: aspirin 81 mg Chew Tablet 324 MG PO (17:03)
[2020-01-02 17:22] LABS: Basophils % 0.6 %; Eosinophils # 0.2 10^3/uL (0.0-0.8); Eosinophils % 2.4 %; Hematocrit 39.6 % (37.0-47.0); Hemoglobin 12.8 g/dL (11.5-15.3); Lymphocytes # 2.1 10^3/uL (0.8-4.8); Lymphocytes % 30.3 %; Mean Corpuscular HGB Conc 32.3 g/dL (30.0-36.0); Mean Corpuscular Hemoglobin 29.2 pg (28.0-34.0); Mean Corpuscular Volume 90.4 fL (81-99); Mean Platelet Volume 9.9 fL (7.4-10.4); Monocytes # 0.5 10^3/uL (0.2-0.9); Monocytes % 6.8 %; Neutrophils % 59.5 %; Nucleated Red Blood Cells % 0 %; Platelet Count 260 10^3/cmm (130-400); Red Blood Count 4.38 10^6/uL (4.1-5.3); Red Cell Distribution Width 13.6 % (12.1-15.1); White Blood Count 7.1 10^3/uL (4.0-10.0)
[2020-01-02 17:24] LABS: INR 0.88 (0.8-1.2)
--- NOTE | 2020-01-02 17:27 | W.ED.CHESTPA ---
HPI - Chest Pain General: Chief Complaint: Chest Pain Stated Complaint: chest pain Time Seen by Provider: 01/02/20 17:24 Source: patient Mode of arrival: ambulatory Limitations: no limitations History of Present Illness: HPI narrative: Diamond is a very nice 49-year-old female who comes in complaining of chest pressure. She claims the pressure is been constant since 10 AM. It has waxed and waned in intensity sporadically. She denies any worsening with exertion or any other exacerbating or alleviating factors with it. There is no radiation of her pain. She states that she does feel short of breath with that and she has noticed her blood pressure has been elevated. She is been nauseated but has not vomited. She is not had anything like this similarly. She states that sometimes when her blood pressure gets elevated she will have problems with chest pressure. She recently saw Dr. Contreras last Friday for her blood pressure and he added a new blood pressure medication. Other than this she denies any other complaints or concerns and states the pain again has been constant since 10 AM. Associated symptoms: Reports dyspnea and nausea; Deny abdominal pain, diaphoresis, fever(s), palpitations, syncope or vomiting Review of Systems Const: Denies: fever(s), chills, body aches, fatigue, malaise or diaphoresis Eyes: Denies: change in vision, blurry vision, blind spots, photophobia, eye discharge or eye redness ENMT: Denies: throat pain, odynophagia, hoarseness, swelling of lips/tongue, oral sores, ear or mastoid pain, ear discharge, change in hearing or nasal discharge Card: Reports: chest pain; Denies: palpitations, irregular heart rhythm, edema, lightheadedness, syncope, pre-syncope, dyspnea on exertion or orthopnea Resp: Reports: dyspnea; Denies: productive cough, non-productive cough, wheezing, hemoptysis or chest congestion GI: Reports: nausea; Denies: abdominal pain, vomiting, hematemesis, coffee ground emesis, heartburn, diarrhea, constipation, GI cramping, hematochezia or melena : Denies: flank pain, dysuria, urinary frequency, urinary urgency or hematuria Musc: Denies: neck pain, back pain, extremity pain, extremity swelling, joint pain, joint swelling, joint redness, joint warmth or joint stiffness Skin/Breast: Denies: rash, pruritus, erythema, skin tenderness or jaundice Neuro: Denies: headache(s), numbness in extremities, weakness in extremities, sensory changes, lack of coordination, difficulty walking, dizziness, vertigo, confusion, Slurred speech present or seizure-like activity Alvin/Lymph: Denies: easy bruising, easy bleeding, petechiae, purpura or enlarged lymph nodes All/Imm: Denies: urticaria, throat swelling, tongue swelling, facial swelling or acute wheezing PFSH ED PFSH: Medical History (Updated 01/02/20 @ 21:11 by Alin Castellano MD) Anxiety Anxiety disorder Asthma Chest pain CKD (chronic kidney disease) Degenerative disc disease Diabetes Hypertension Obstructive sleep apnea Shortness of Breath Sleep apnea Surgical History History of ankle surgery History of cholecystectomy History of hysterectomy History of tonsillectomy Family History Other CAD (coronary artery disease) Cancer Diabetes Social History Smoking and tobacco status: never smoked Alcohol intake: never Substance/Drug Use: current Substance/Drug use frequency: few times a week Substance/Drug use type: Marijuana Lives independently: Yes Household members: significant other Marital status: Life Partner Current occupational status: disabled History of recent travel: No Current gender identity: Female Physical Exam Const: COMMON NORMALS: no acute distress, patient oriented x3, no limitations, healthy appearing and well nourished GENERAL APPEARANCE: cooperative, well kempt and well developed HENMT: COMMON NORMALS: normocephalic, atraumatic, external ears normal, EAC's normal and Normal external nose present HEAD & SCALP: normal to inspection, normocephalic and atraumatic FACE & SINUS: normal facial exam and face symmetric NOSE: Normal external nose present and Normal nares present EXTERNAL EAR: Yes external ears normal EXTERNAL AUDITORY CANAL: EAC's normal MOUTH: Normal oral and palatal mucosa present, lip normal and tongue normal Eye: COMMON NORMALS: Equal, round and reactive pupils present and conjunctivae normal GENERAL EYE: appearance normal, both eyes and all related structures ALIGNMENT: Yes alignment normal PERIORBITAL: periorbital findings normal EYELID: eyelids normal CONJUNCTIVA: Yes conjunctivae normal SCLERA: sclerae normal PUPIL: Yes Equal, round and reactive pupils present Neck/C-Spine: COMMON NORMALS: full ROM, no lymphadenopathy, supple, no meningeal signs and no JVD GENERAL: Yes normal visual inspection and Yes trachea midline Chest: COMMONS NORMALS: normal inspection of the chest and normal palpation of entire chest wall Resp: COMMON NORMALS: normal respiratory effort, No retractions and No use of accessory muscles EFFORT & INSPECTION: Yes able to speak in complete sentences and Yes symmetric chest movement AUSCULTATION: no crackles, no rales, no rhonchi and no wheezes Cardio: COMMON NORMALS: no JVD, regular rate, regular rhythm, S1 normal heart sound present and S2 normal heart sound present RATE: regular rate RHYTHM: regular rhythm HEART SOUNDS: S1 normal heart sound present, S2 normal heart sound present, no click, no gallops, no murmurs, no rubs and abnormal split S2 GI: COMMON NORMALS: Soft to palpation and No hepatosplenomegaly present PALPATION: Yes Soft to palpation, No Tenderness to palpation present (GI), No Guarding due to palpation present (GI), No Rigid due to palpation, Yes No hepatosplenomegaly present, No Hernia present, No Palpable mass present and No Pulsatile mass present : COMMON NORMALS: Yes no CVA tenderness BLADDER/KIDNEY EXAM: Yes no CVA tenderness EXTERNAL FEMALE EXAM: No Hernia present Back/Pelvis: COMMON NORMALS: no CVA tenderness, thoracic and lumbar spine normal to inspection, no thoracic nor lumbar tenderness and thoraco-lumbar ROM normal Extremity: COMMON NORMALS: normal to inspection, full ROM, capillary refill normal, no joint enlargement, no clubbing, cyanosis or edema and no calf tenderness Neuro: COMMON NORMALS: patient oriented x3, CN's II-XII intact bilaterally, moves all extremities, no focal motor deficits and no sensory deficits noted MENINGEAL SIGNS: Yes no meningeal signs SPEECH: speech normal Psych: COMMON NORMALS: mental status grossly normal, Normal thought process present, cooperative, normal affect, speech normal and activity/motor behavior normal APPEARANCE: Yes well kempt SPEECH: Yes normal speech THOUGHT PROCESS: Normal thought process present Skin: COMMON NORMALS: no rashes or lesions noted, turgor normal, no jaundice, no petechiae and no mottling GENERAL SKIN EXAM: no rashes or lesions noted and turgor normal Course Vital Signs: Vital signs: Vital Signs Temperature 98.5 F 01/02/20 20:47 Pulse Rate 58 L 01/02/20 20:46 Respiratory Rate 20 H 01/02/20 20:48 Blood Pressure 129/75 01/02/20 20:10 Pulse Oximetry 95 01/02/20 20:48 MDM - Chest Pain MDM Narrative: Medical decision making narrative: Patient has had 7 hours of constant chest pain with no bump in her cardiac enzymes and a normal EKG. I have reviewed the case in full with Dr. Contreras who would like the patient admitted to the hospitalist service and he will consult. I reviewed the case with Dr. Gonsales and he is in agreement to do so. The plan is to do a heart cath tomorrow to put to rest a cause for her pain. Lab Data: Attestation: I reviewed the patient's lab results. Labs: Lab Results 01/02/20 01/02/20 01/02/20 Range/Units 17:05 17:05 17:05 WBC 7.1 (4.0-10.0) 10^3/ uL RBC 4.38 (4.1-5.3) 10^6/u L Hgb 12.8 (11.5-15.3) g/dL Hct 39.6 (37.0-47.0) % MCV 90.4 (81-99) fL MCH 29.2 (28.0-34.0) pg MCHC 32.3 (30.0-36.0) g/dL RDW 13.6 (12.1-15.1) % Plt Count 260 (130-400) 10^3/c mm MPV 9.9 (7.4-10.4) fL Neut % (Auto) 59.5 % Lymph % (Auto) 30.3 % Stark % (Auto) 6.8 % Eos % (Auto) 2.4 % Baso % (Auto) 0.6 % Neut # (Auto) 4.20 (1.8-7.7) 10^3/u L Lymph # (Auto) 2.1 (0.8-4.8) 10^3/u L Stark # (Auto) 0.5 (0.2-0.9) 10^3/u L Eos # (Auto) 0.2 (0.0-0.8) 10^3/u L Baso # (Auto) 0.0 (0.0-0.1) 10^3/u L Nucleated RBC % (a uto) 0 % Nucleated RBCs # 0.0 /100WBC PT (10.5-13.3) SECO NDS INR (0.8-1.2) D-Dimer (0-0.59) ug/mIFE U Sodium 140 (136-145) mmol/L Potassium 4.0 (3.5-5.1) mmol/L Chloride 102 (98-107) mmol/L Carbon Dioxide 27 (22-29) mmol/L Anion Gap 15.0 (5-19) BUN 10 (6-20) mg/dL Creatinine 0.7 (0.5-0.9) mg/dL GFR Calculation 89.3 L (90-130) mL/min Glucose 103 (65-115) mg/dL Calculated Osmolal ity 286 (285-295) mOsm/k g Calcium 9.5 (8.5-10.5) mg/dL Total Bilirubin 0.4 (0.15-1.2) mg/dL AST 12 (0-32) U/L ALT 13 (0-33) U/L Alkaline Phosphata se 83 (35-105) IU/L Troponin T Baselin e 7 (0-10) ng/L Troponin T 120 Min [place] (0-10) ng/L Delta Troponin T (0-10) ABS# NT-Pro-B Natriuret Pep 428 H (0-125) pg/mL Total Protein 7.6 (6.6-8.7) g/dL Albumin 4.3 (3.5-5.2) g/dL Globulin 3.3 (1.3-4.6) g/dL Triglycerides (0-150) mg/dL Cholesterol (0-200) mg/dL LDL Cholesterol, C alc (50-129) mg/dL Total VLDL Cholest cristy (0-30) mg/dL HDL Cholesterol (60-100) mg/dL Cholesterol/HDL Ra josse (0.0-4.40) mg/dL HCG, Qual (Negative) 07/19/20 07/19/20 07/19/20 Range/Units 17:05 17:05 17:05 WBC (4.0-10.0) 10^3/ uL RBC (4.1-5.3) 10^6/u L Hgb (11.5-15.3) g/dL Hct (37.0-47.0) % MCV (81-99) fL MCH (28.0-34.0) pg MCHC (30.0-36.0) g/dL RDW (12.1-15.1) % Plt Count (130-400) 10^3/c mm MPV (7.4-10.4) fL Neut % (Auto) % Lymph % (Auto) % Stark % (Auto) % Eos % (Auto) % Baso % (Auto) % Neut # (Auto) (1.8-7.7) 10^3/u L Lymph # (Auto) (0.8-4.8) 10^3/u L Stark # (Auto) (0.2-0.9) 10^3/u L Eos # (Auto) (0.0-0.8) 10^3/u L Baso # (Auto) (0.0-0.1) 10^3/u L Nucleated RBC % (a uto) % Nucleated RBCs # /100WBC PT 12.20 (10.5-13.3) SECO NDS INR 0.88 (0.8-1.2) D-Dimer <= 0.27 (0-0.59) ug/mIFE U Sodium (136-145) mmol/L Potassium (3.5-5.1) mmol/L Chloride (98-107) mmol/L Carbon Dioxide (22-29) mmol/L Anion Gap (5-19) BUN (6-20) mg/dL Creatinine (0.5-0.9) mg/dL GFR Calculation (90-130) mL/min Glucose (65-115) mg/dL Calculated Osmolal ity (285-295) mOsm/k g Calcium (8.5-10.5) mg/dL Total Bilirubin (0.15-1.2) mg/dL AST (0-32) U/L ALT (0-33) U/L Alkaline Phosphata se (35-105) IU/L Troponin T Baselin e (0-10) ng/L Troponin T 120 Min [place] (0-10) ng/L Delta Troponin T (0-10) ABS# NT-Pro-B Natriuret Pep (0-125) pg/mL Total Protein (6.6-8.7) g/dL Albumin (3.5-5.2) g/dL Globulin (1.3-4.6) g/dL Triglycerides (0-150) mg/dL Cholesterol (0-200) mg/dL LDL Cholesterol, C alc (50-129) mg/dL Total VLDL Cholest cristy (0-30) mg/dL HDL Cholesterol (60-100) mg/dL Cholesterol/HDL Ra josse (0.0-4.40) mg/dL HCG, Qual Negative (Negative) 01/02/20 01/02/20 Range/Units 19:14 19:14 WBC (4.0-10.0) 10^3/ uL RBC (4.1-5.3) 10^6/u L Hgb (11.5-15.3) g/dL Hct (37.0-47.0) % MCV (81-99) fL MCH (28.0-34.0) pg MCHC (30.0-36.0) g/dL RDW (12.1-15.1) % Plt Count (130-400) 10^3/c mm MPV (7.4-10.4) fL Neut % (Auto) % Lymph % (Auto) % Stark % (Auto) % Eos % (Auto) % Baso % (Auto) % Neut # (Auto) (1.8-7.7) 10^3/u L Lymph # (Auto) (0.8-4.8) 10^3/u L Stark # (Auto) (0.2-0.9) 10^3/u L Eos # (Auto) (0.0-0.8) 10^3/u L Baso # (Auto) (0.0-0.1) 10^3/u L Nucleated RBC % (a uto) % Nucleated RBCs # /100WBC PT (10.5-13.3) SECO NDS INR (0.8-1.2) D-Dimer (0-0.59) ug/mIFE U Sodium (136-145) mmol/L Potassium (3.5-5.1) mmol/L Chloride (98-107) mmol/L Carbon Dioxide (22-29) mmol/L Anion Gap (5-19) BUN (6-20) mg/dL Creatinine (0.5-0.9) mg/dL GFR Calculation (90-130) mL/min Glucose (65-115) mg/dL Calculated Osmolal ity (285-295) mOsm/k g Calcium (8.5-10.5) mg/dL Total Bilirubin (0.15-1.2) mg/dL AST (0-32) U/L ALT (0-33) U/L Alkaline Phosphata se (35-105) IU/L Troponin T Baselin e (0-10) ng/L Troponin T 120 Min [place] 8.15 (0-10) ng/L Delta Troponin T 1.15 (0-10) ABS# NT-Pro-B Natriuret Pep (0-125) pg/mL Total Protein (6.6-8.7) g/dL Albumin (3.5-5.2) g/dL Globulin (1.3-4.6) g/dL Triglycerides 223 H (0-150) mg/dL Cholesterol 284 H (0-200) mg/dL LDL Cholesterol, C alc 206 H (50-129) mg/dL Total VLDL Cholest cristy 45 H (0-30) mg/dL HDL Cholesterol 33 L (60-100) mg/dL Cholesterol/HDL Ra josse 8.61 H (0.0-4.40) mg/dL HCG, Qual (Negative) Imaging Data^: CXR: My impression: No acute cardiopulmonary findings. EKG Data^: EKG 1: Attestation: I personally reviewed and interpreted this EKG as follows: EKG interpretation date: 01/02/20 EKG interpretation time: 16:37 Interpretation: Normal sinus rhythm at 64 beats a minute, incomplete right bundle branch block, no acute ST or T wave changes. PVCs noted. EKG 2: Attestation: I personally reviewed and interpreted this EKG as follows: EKG interpretation date: 01/02/20 EKG interpretation time: 18:33 Interpretation: Normal sinus rhythm at 52 beats a minute, no acute ST or T wave changes, incomplete right bundle branch block, unchanged from previous. Discharge Plan Discharge Patient Disposition: Admitted As Inpatient Admit Provider: Nader Gonsales Clinical Impression: Chest pressure Condition: Stable Interventions: ED Discharge Assessment Last Done: 01/02/20 19:51 ED Charges Last Done: 01/02/20 19:51 Discharge Date/Time: 01/02/20 19:53 Coding Level of Care Code ED Manager [employer] for Chg Fwd Exam Comprehensive
[2020-01-02 17:43] LABS: Alanine Aminotransferase 13 U/L (0-33); Albumin Level 4.3 g/dL (3.5-5.2); Alkaline Phosphatase 83 IU/L (35-105); Aspartate Amino Transferase 12 U/L (0-32); Blood Urea Nitrogen 10 mg/dL (6-20); Calcium 9.5 mg/dL (8.5-10.5); Carbon Dioxide 27 mmol/L (22-29); Chloride 102 mmol/L (98-107); Globulin 3.3 g/dL (1.3-4.6); Glomerular Filtration Rate 89.3 mL/min (90-130); Glucose 103 mg/dL (65-115); NT Pro B Type Natriuretic Pept 428 pg/mL (0-125); Osmolality Calculated 286 mOsm/kg (285-295); Sodium 140 mmol/L (136-145); Total Bilirubin 0.4 mg/dL (0.15-1.2); Total Protein 7.6 g/dL (6.6-8.7)
[2020-01-02 17:57] LABS: Troponin(5th) Baseline 7 ng/L (0-10)
[2020-01-02] MEDS: nitroglycerin 0.4 mg sublingual Tablet SUBLINGUAL ×4 (18:18→23:36)
--- NOTE | 2020-01-02 18:48 | ECG_ITS ---
[facility] Test Date: 2020-01-02 Pat Name: Diamond Lin Department: Room: Gender: Female Manager Drive: : 1970 Requested By: Zahra Murphy Order Number: [id number] Aly MD: Alin Castellano M.D. Measurements Intervals [place] Rate: 52 P: 40 [place]: 165 QRS: 14 QRSD: 118 T: 7 QT: 465 QTc: 433 Interpretive Statements SINUS BRADYCARDIA INCOMPLETE RIGHT BUNDLE BRANCH BLOCK [90+ ms QRS DURATION, TERMINAL R IN V1/V2, 40+ ms S IN I/aVL/V4/V5/V6] Compared to ECG 01/02/2020 16:37:48 Sinus rhythm no longer present Ventricular premature complex(es) no longer present Electronically Signed On 01-02-2020 22:06:58 CDT by Alin Castellano M.D. [id number]
[2020-01-02] MEDS: LORazepam 2 mg/mL INJ 1 mL 1 MG IVP (18:58)
[2020-01-02 19:11] LABS: D Dimer <= 0.27 ug/mIFEU (0-0.59)
[2020-01-02] MEDS: nitroglycerin 1 gm/inch oint Pkt 1 INCH TOPICAL (19:12)
[2020-01-02 19:35] LABS: HCG, Serum Qual Negative (Negative)
--- NOTE | 2020-01-02 19:35 | PM.HP ---
Providers/Chief Complaint Admitting Physician: Nader Gonsales Primary Care Provider: TUNDE Arteaga Chief Complaint: HIGH BP AND CP History of Present Illness Diamond Lin is a 49 year old pleasant lady who appears anxious came to ER for evaluation due to chest pressure symptoms starting this morning. They have been persistent. Across her chest. She denies any trigger. She takes a PPI at home, and denies heartburn. She does state that she has been having some nausea and has been having early satiety. She has never had an EGD. She is not a cigarette smoker, however, gets exposure to secondhand smoke from her boyfriend. She occasionally takes Aleve. She has never had a gastric emptying study. She does not check her glucose at home. She takes exenatide prescribed to her by her primary care provider. She has asthma also, however, tried all of her inhalers, and the chest pressure would not improve with them. She has a little bit of shortness of breath with episodes of chest pressure, however, not very significantly more than usual. She did notice that her blood pressure has been staying high, and has been having issues dealing with her blood pressure due to which she also follows up with Dr. Castellano in office. She has been having episodes of chest pressure on and off for a while. She has hypertension, diabetes, family history of heart disease and early [place] including in her sister who of a massive [place] in her 30s. She reports that her primary care provider has been working on arranging a sleep study for her. She reportedly had an overnight pulse ox at 1 point and was noted to have low saturations during the night. She denies any fever, muscle aches, headache, cough or other symptoms of acute infection. She notes that when her blood pressure gets elevated she sometimes sweats more than usual. Review of Systems Const: Reports: change in appetite; Denies: fever(s), chills, body aches or malaise Eyes: Denies: change in vision or eye redness ENMT: Denies: throat pain, oral sores or ear or mastoid pain Card: Reports: other (Chest pressure); Denies: chest pain, edema, pre-syncope or dyspnea on exertion Resp: Denies: dyspnea, productive cough, change in phlegm color or hemoptysis GI: Reports: other (Early satiety); Denies: abdominal pain, nausea, vomiting, dysphagia, heartburn, diarrhea, constipation, hematochezia or melena : Denies: flank pain, urinary frequency or hematuria Musc: Reports: other (There is always slight swelling of L foot/ankle due to prior ankle surgery); Denies: back pain, joint swelling or joint redness Skin/Breast: Denies: rash, sores or new lesions Neuro: Denies: headache(s), numbness in extremities, weakness in extremities, dizziness, confusion or seizure-like activity Endo: Denies: polyuria or polydipsia Alvin/Lymph: Denies: easy bleeding or purpura All/Imm: Denies: urticaria, throat swelling or tongue swelling Medications/Allergies Home Medications Medication Instructions Recorded Confirmed Last Taken Type exenatide [Byetta] See Rx Instructions .ROUTE .COMPLEX 08/30/19 01/02/20 08/30/19 History montelukast 10 mg tablet 10 mg PO DAILY #30 tab 09/03/19 01/02/20 01/01/20 Rx albuterol sulfate 90 mcg/actuation 2 puff INHALATION Q6H PRN 09/14/19 01/02/20 Unknown History aerosol inhaler diclofenac sodium 1 % topical gel 2 - 4 gm TOPICAL DAILY 09/14/19 01/02/20 Unknown History fluticasone propionate 110 1 puff INHALATION BID 09/14/19 01/02/20 Unknown History mcg/actuation HFA aerosol inhaler fluticasone propionate 50 1 spray INTRANASAL PRN 09/14/19 01/02/20 Unknown History mcg/actuation nasal spray,suspension levetiracetam 750 mg tablet 750 mg PO BID #60 tab 11/15/19 01/02/20 01/01/20 Rx citalopram 20 mg tablet 20 mg PO DAILY #30 tab 12/06/19 01/02/20 01/01/20 Rx ondansetron HCl 4 mg tablet 4 mg PO Q6H PRN #30 tab 12/06/19 01/02/20 01/02/20 Rx pantoprazole 40 mg tablet,delayed 40 mg PO DAILY #30 tab 12/06/19 01/02/20 01/01/20 Rx release losartan 50 mg tablet 50 mg PO DAILY #30 tab 12/29/19 01/02/20 01/01/20 Rx metoprolol succinate 25 mg 25 mg PO DAILY #30 tab 12/29/19 01/02/20 01/01/20 Rx tablet,extended release 24 hr Ambien 10 mg PO PRN 01/02/20 01/02/20 Unknown History ipratropium-albuterol 3 ml INHALATION PRN 01/02/20 01/02/20 Unknown History ipratropium-albuterol [Combivent 1 puff INHALATION PRN 01/02/20 01/02/20 Unknown History Respimat] Allergies Allergy/AdvReac Type Severity Reaction Status Date / Time asenapine [From Saphris] Allergy ADR-Irritab Verified 01/02/20 17:38 le ketorolac [From Toradol] Allergy ADR-Itching Verified 01/02/20 17:38 PFSH Acute PFSH: Medical History Anxiety Anxiety disorder Asthma CKD (chronic kidney disease) Degenerative disc disease Diabetes Hypertension Obstructive sleep apnea Shortness of Breath Sleep apnea Surgical History History of ankle surgery History of cholecystectomy History of hysterectomy History of tonsillectomy Family History Other CAD (coronary artery disease) Cancer Diabetes Social History Smoking and tobacco status: never smoked Alcohol intake: never Substance/Drug Use: current Substance/Drug use frequency: few times a week Substance/Drug use type: Marijuana Lives independently: Yes Household members: significant other Marital status: Life Partner Current occupational status: disabled History of recent travel: No Current gender identity: Female Vitals/I&O/Wt Last Vital Signs Temp 98.1 F 01/02/20 16:39 Pulse 57 L 01/02/20 18:45 Resp 20 H 01/02/20 18:45 BP 173/91 01/02/20 18:45 Pulse Ox 97 01/02/20 18:45 Weight last 48 hrs Weight 117.934 kg Physical Exam Const: COMMON NORMALS: no acute distress and patient oriented x3 GENERAL APPEARANCE: anxious HENMT: COMMON NORMALS: oropharynx normal Neck/C-Spine: COMMON NORMALS: no JVD Resp: COMMON NORMALS: normal respiratory effort and clear to auscultation bilaterally AUSCULTATION: clear to auscultation bilaterally Cardio: COMMON NORMALS: no JVD, regular rhythm, S1 normal heart sound present, S2 normal heart sound present and No murmurs present (Cardio) RHYTHM: regular rhythm HEART SOUNDS: S1 normal heart sound present and S2 normal heart sound present GI: COMMON NORMALS: Normal to inspection, nondistended, normoactive bowel sounds present, Soft to palpation and non-tender PALPATION: Yes Soft to palpation Extremity: COMMON NORMALS: no joint enlargement and no pedal edema OTHER: Scar on medial R ankle Neuro: COMMON NORMALS: patient oriented x3 and moves all extremities Skin: COMMON NORMALS: no rashes or lesions noted GENERAL SKIN EXAM: no rashes or lesions noted OTHER: Tattoos Data : 01/02/20 17:05 01/02/20 17:05 A&P Assessment and plan (1) Chest pressure: Episode of chest pressure today. EKG with right BBB. First troponin is not elevated. At this time no sign of acute ischemia. Blood pressure has been difficult to control. Currently finally better down to 157/66. In addition to hypotension, other risk factors for coronary disease include diabetes, secondhand smoke exposure, history of early CAD in family including sister in her 30s who from massive [place]. She does get quite anxious, and this may be contributing to her symptoms. She has asthma, however, says she has tried inhalers, and they did not help improve the symptoms. This does not appear to be respiration related. She saturating well. She does not appear dyspneic. There is no wheezing on exam. She is on a PPI. Denies heartburn. D-dimer is not elevated, making PE unlikely. We will check lipid profile. Consider checking A1c on outpatient basis to optimize risk factors for coronary disease. Given persistent symptoms she will be assessed by cardiology for purpose of additional risk stratification. We will keep n.p.o. after midnight. Status: Acute (2) Hypertension: Systolic blood pressures up into 200s occasionally. Reports diastolic hypertension as well with diastolic pressures up as high as 124. She is on losartan at home. Will continue. Hold metoprolol due to bradycardia, currently heart rate in the 60s. Cardiac diet. Monitor blood pressures. She appears very anxious, and appears to have problems with chronic anxiety, and so this appears to be driving her blood pressures. We will add Xanax for now given severe anxiety. Long-term consider setting up follow-up with [facility]. Discussed with her also to discontinue NSAIDs as they may be affecting her blood pressure. Status: Acute Qualifiers: Hypertension type: essential hypertension Qualified Code(s): I10 - Essential (primary) hypertension (3) Early satiety: Reports that she gets satiated very easily. Has had a very poor appetite. Has diabetes. Secondhand smoke exposure. Consider gastric emptying study on outpatient basis. Consider upper endoscopic evaluation in case of persistent symptoms of early fullness given secondhand smoke exposure. I doubt that these are contributing to her symptoms. Status: Acute Additional A&P Information Asthma DM2 Anxiety Current kidney disease KATHE: Continue arrangements for sleep study DDD Attestations Medical Necessity Statement*: Place in observation. Coding Level of Care Code Acute Pressurised Container Filler for [facility] Fwd Exam Comprehensive Diagnoses Chest pressure R07.89 Hypertension I10 Hypertension type: essential hypertension Early satiety R68.81
[2020-01-02 20:04] LABS: Troponin 5 2HR 8.15 ng/L (0-10); Troponin 5 2HR Delta 1.15 ABS# (0-10)
--- NOTE | 2020-01-02 20:09 | PC.NURSE ---
password: [id number]
[2020-01-02] MEDS: ondansetron 2 mg/ML SDV 2 mL 4 MG IVP (20:48)
[2020-01-02] MEDS: morphine 4 mg/mL SDV 1 mL IVP (20:48)
[2020-01-02 20:52] LABS: Chol HDL Ratio 8.61 mg/dL (0.0-4.40); Cholesterol 284 mg/dL (0-200); HDL Cholesterol 33 mg/dL (60-100); LDL Cholesterol Calculated 206 mg/dL (50-129); Triglycerides 223 mg/dL (0-150); VLDL Cholestrol Calculation 45 mg/dL (0-30)
[2020-01-02] MEDS: heparin 5,000 unit/mL INJ 1 mL 5000 UNIT SUBCUT (21:19)
--- NOTE | 2020-01-02 21:22 | P.CONIM_ITS ---
Providers/Reason For Consult Consulting Physican/Specialty*: Cardiology Reason for Consult*: Chest pain Uncontrolled hypertension Attending Physician: Nader Gonsales Primary Care Provider: TUNDE Arteaga History of Present Illness History of Present Illness Diamond Lin is a 49 year old female with PMHx significant for hypertension, obesity, marijuana abuse, diabetes mellitus type 2, obstructive sleep apnea, questionable compliance, CKD, seizure disorder and former history of drug abuse DJD and chronic back pain who continues to have uncontrolled hypertension and recurrent chest pain was admitted through ER with worsening of chest pain and uncontrolled hypertension. Patient called me couple of times over this weekend as she saw me in the clinic when she was complaining of chest pain we were in the process of arranging angiogram for her. She told me today that she is hurting more in her chest pain is coming and going at regular interval. She told me that she took nitroglycerin of her boyfriend which has relieved her however blood pressure is fluctuating anywhere from 1 80-200 systolic. This morning when she called me again and told me that chest pain is not getting better I advised her to come to the ER. Initial cardiac markers were negative along with EKG. Patient has high anxiety therefore it is very difficult to ascertain whether chest pain is cardiac or not. She appears very nervous and scared. Meds/Allergies Home Medications and Allergies Home Medications Medication Instructions Recorded Confirmed Last Taken Type exenatide [Byetta] See Rx Instructions .ROUTE .COMPLEX 08/30/19 01/02/20 08/30/19 History montelukast 10 mg tablet 10 mg PO DAILY #30 tab 09/03/19 01/02/20 01/01/20 Rx albuterol sulfate 90 mcg/actuation 2 puff INHALATION Q6H PRN 09/14/19 01/02/20 Unknown History aerosol inhaler diclofenac sodium 1 % topical gel 2 - 4 gm TOPICAL DAILY 09/14/19 01/02/20 Unknown History fluticasone propionate 110 1 puff INHALATION BID 09/14/19 01/02/20 Unknown History mcg/actuation HFA aerosol inhaler fluticasone propionate 50 1 spray INTRANASAL PRN 09/14/19 01/02/20 Unknown History mcg/actuation nasal spray,suspension levetiracetam 750 mg tablet 750 mg PO BID #60 tab 11/15/19 01/02/20 01/01/20 Rx citalopram 20 mg tablet 20 mg PO DAILY #30 tab 12/06/19 01/02/20 01/01/20 Rx ondansetron HCl 4 mg tablet 4 mg PO Q6H PRN #30 tab 12/06/19 01/02/20 01/02/20 Rx pantoprazole 40 mg tablet,delayed 40 mg PO DAILY #30 tab 12/06/19 01/02/20 01/01/20 Rx release losartan 50 mg tablet 50 mg PO DAILY #30 tab 12/29/19 01/02/20 01/01/20 Rx metoprolol succinate 25 mg 25 mg PO DAILY #30 tab 12/29/19 01/02/20 01/01/20 Rx tablet,extended release 24 hr Ambien 10 mg PO PRN 01/02/20 01/02/20 Unknown History ipratropium-albuterol 3 ml INHALATION PRN 01/02/20 01/02/20 Unknown History ipratropium-albuterol [Combivent 1 puff INHALATION PRN 01/02/20 01/02/20 Unknown History Respimat] Allergies Allergy/AdvReac Type Severity Reaction Status Date / Time asenapine [From Saphris] Allergy ADR-Irritab Verified 01/02/20 17:38 le ketorolac [From Toradol] Allergy ADR-Itching Verified 01/02/20 17:38 Current Medications Current Medications Generic Name Dose Route Start Last Admin Trade Name Freq PRN Reason Stop Dose Admin Heparin Sodium (Beef Lung) 5,000 unit 01/02/20 21:00 01/02/20 21:19 Heparin SUBCUT 5,000 unit Q8H PARDEEP Administration Morphine Sulfate 4 mg 01/02/20 20:07 01/02/20 20:48 Morphine IVP 4 mg Q4H PRN Administration SEVERE PAIN Ondansetron HCl 4 mg 01/02/20 20:07 01/02/20 20:48 Zofran IVP 4 mg Q6H PRN Administration NAUSEA AND VOMITING Zolpidem Tartrate 10 mg 01/02/20 20:07 01/02/20 21:19 Ambien PO 10 mg BEDTIME PRN Administration SLEEP PFSH Acute PFSH: Medical History Anxiety Anxiety disorder Asthma Chest pain CKD (chronic kidney disease) Degenerative disc disease Diabetes Hypertension Obstructive sleep apnea Shortness of Breath Sleep apnea Surgical History History of ankle surgery History of cholecystectomy History of hysterectomy History of tonsillectomy Family History Other CAD (coronary artery disease) Cancer Diabetes Social History Smoking and tobacco status: never smoked Alcohol intake: never Substance/Drug Use: current Substance/Drug use frequency: few times a week Substance/Drug use type: Marijuana Lives independently: Yes Household members: significant other Marital status: Life Partner Current occupational status: disabled History of recent travel: No Current gender identity: Female Vitals/I&O/Wt Last Vital Signs Temp 98.5 F 01/02/20 20:47 Pulse 58 L 01/02/20 20:46 Resp 20 H 01/02/20 20:48 BP 129/75 01/02/20 20:10 Pulse Ox 95 01/02/20 20:48 Weight last 48 hrs Weight 260 lb Physical Exam Narrative: EXAM NARRATIVE: GENERAL: Patient is alert, awake and oriented x3. NECK: No jugular vein distension. Optimally controlled continue medicine. HEENT: No cyanosis. No icterus. No pallor. HEART: Regular S1 and S2. No murmur, rub or gallop. LUNGS: Clear to auscultate bilaterally. ABDOMEN: Soft, nontender and nondistended. Positive bowel sounds. No guarding, rebound or tenderness. CENTRAL NERVOUS SYSTEM: Grossly nonfocal. EXTREMITIES: Lower extremities without edema bilaterally. A&P Assessment and plan (1) Chest pain: Patient is high risk for acute coronary syndrome. She is a smoker, she has history of drug abuse she is diabetic hypertensive obese she continues to have worsening of chest pain along with shortness of breath though she has negative stress test in the near past since she is not getting better despite of optimization of medicine including aspirin beta-patrick nitroglycerin therefore we will proceed with left heart cath to assess her coronaries and perhaps inter vention if required. Patient has been explained all risk benefit and all alternative for the procedure she would like to proceed with it. Status: Acute Qualifiers: Chest pain type: precordial pain Qualified Code(s): R07.2 - Precordial pain (2) Anxiety disorder: Has high anxiety it is therefore difficult to assess whether chest pain is due to anxiety or obstructive coronary artery disease. Our medicine colleagues will treat her for anxiety. Status: Acute Qualifiers: Anxiety disorder type: other anxiety disorder Qualified Code(s): F41.8 - Other specified anxiety disorders (3) Uncontrolled hypertension: Medicine will be optimizing his blood pressure not under control. I may will start her on carvedilol instead of metoprolol and losartan will be optimized. Status: Acute Consult Attestations Medical Necessity Statement: I am expecting her stay to cross more than 2 midnight Coding Level of Care Code New Pt Acute Nutrition Specialist for [facility] Fwd Patient Type New History Detailed Exam Detailed Medical Decision Making Moderate Complexity Diagnoses Chest pain R07.2 Chest pain type: precordial pain Anxiety disorder F41.8 Anxiety disorder type: other anxiety disorder Uncontrolled hypertension I10
--- NOTE | 2020-01-02 21:23 | PC.NURSE ---
Addendum entered by Laura Morelos RN 01/02/20 23:10: Dr. Castellano notified of pain level before and after Morphine. Original Note: Patient arrived to the floor from the ED after report was received via phone. Patient is alert and oriented and ambulatory. Upon arrival to her room, patient complained of chest pain 5/10 and nausea. Patient was given PRN Morphine and Zofran, stating that it helped and that her pain is now a 3/10. Patient states that this is a tolerable level for her. Patient is currently watching TV and eating a sandwhich. Patient has been oriented to her room and has call light within reach. Will monitor and reassess pain.
[2020-01-02] MEDS: acetaminophen 325 mg Tablet 650 MG PO (23:31)
--- NOTE | 2020-01-02 23:33 | PC.NURSE ---
Dr. Gonsales notified of patient asking for Morphine stating pain is 5/10 in chest when awoken by lab staff. Doctor notified of it not being time for Morphine yet. SL nitro PRN ordered. Patient asked for PRN Tylenol with nitro due to stating nitro gives me a headache. Patient is continually asking when it will be time for Morphine again.
--- NOTE | 2020-01-02 23:51 | PC.NURSE ---
Patient is currently resting on right side in bed with eyes closed and audible snores heard. Will monitor and reassess pain.
[2020-01-02 23:54] LABS: Troponin 5 6HR 6.86 ng/L (0-10)
[2020-01-02 23:55] LABS: Troponin 5 6HR Delta -0.14 ng/L (0-12)
[2020-01-03] VITALS (75 sets, daily range): BP systolic 92–157; BP diastolic 55–88; PULSE 51–75; RESP 7–25; TEMP 36.6–37.1; O2SAT 89–98
--- NOTE | 2020-01-03 01:03 | PC.NURSE ---
Went in room to round on patient and reassess pain. Patient still appears to be sleeping. Will monitor and reassess.
[2020-01-03] MEDS: morphine 4 mg/mL SDV 1 mL IVP ×2 (02:23→08:36)
[2020-01-03] MEDS: ondansetron 2 mg/ML SDV 2 mL 4 MG IVP ×2 (02:27→08:22)
--- NOTE | 2020-01-03 03:31 | PC.NURSE ---
Patient refusing to wear mask upon arrival to floor last night.
[2020-01-03] MEDS: heparin 5,000 unit/mL INJ 1 mL 5000 UNIT SUBCUT (04:17)
--- NOTE | 2020-01-03 04:19 | PC.NURSE ---
The computer will not let me reassess pain after Morphine on the mar. Patient states her pain is now a 3/10 and was previously a 5/10 after morphine.
[2020-01-03 05:26] LABS: Anion Gap 12.8 (5-19); Blood Urea Nitrogen 11 mg/dL (6-20); Calcium 9.2 mg/dL (8.5-10.5); Carbon Dioxide 28 mmol/L (22-29); Chloride 103 mmol/L (98-107); Glomerular Filtration Rate 76.6 mL/min (90-130); Glucose 100 mg/dL (65-115); Osmolality Calculated 286 mOsm/kg (285-295); Potassium 3.8 mmol/L (3.5-5.1); Sodium 140 mmol/L (136-145)
[2020-01-03 05:36] LABS: Basophils % 0.6 %; Eosinophils # 0.2 10^3/uL (0.0-0.8); Eosinophils % 3.1 %; Hematocrit 38.2 % (37.0-47.0); Lymphocytes % 29.7 %; Mean Corpuscular HGB Conc 31.4 g/dL (30.0-36.0); Mean Corpuscular Hemoglobin 29.1 pg (28.0-34.0); Mean Corpuscular Volume 92.5 fL (81-99); Mean Platelet Volume 10.2 fL (7.4-10.4); Monocytes # 0.5 10^3/uL (0.2-0.9); Monocytes % 7.7 %; Neutrophils # 3.98 10^3/uL (1.8-7.7); Neutrophils % 58.6 %; Nucleated Red Blood Cells % 0 %; Platelet Count 239 10^3/cmm (130-400); Red Blood Count 4.13 10^6/uL (4.1-5.3); Red Cell Distribution Width 13.8 % (12.1-15.1); White Blood Count 6.8 10^3/uL (4.0-10.0)
--- NOTE | 2020-01-03 08:12 | PC.CHAP ---
Pastoral Care Encounter/Spiritual Assessment Type of Contact [] Declined national sales consultant visit [] Patient/Family/Request visit [] Outpatient visit [] Follow-up visit [] Physician referral [] Code/Alert [x] Routine visit [] Staff referral [] Actively dying [x] Patient sleeping [] Family support [] [] Out of room [] Palliative care [] [] Receiving care in room [] Pre-surgical visit [] Trauma [] Long length of stay [] ICU visit [] Other: Relational/Emotional Strength [] Patient feels connected with others/family/visitors/staff [] Distress [] Loneliness/isolation [] Abandonment Spirituality of Patient [] Person of Anuradha [] Attends Zoroastrian of their Anuradha [] Believes in Prayer [] Reads Bible or Faith materials [] There are Spiritual issues to be addressed [employer] Line Technician Interventions [x] Prayer [] Active listening [] Non-anxious presence [] Spiritual/emotional support [] Crisis/trauma care [] Spiritual counseling [] Bereavement support [] Provided bereavement packet [] Provided Bible/devotional materials [] Provided toy/stuffed animal, coloring book to patient or family member [] Provided Communion [] Anointing/[place] [] Salvation [x] Completed spiritual assessment [] Other: Impact on Illness or Injury [] Angry [] Fearful [] Anxious [] Often cries [] Exhaustion [] Unable to work [] Unable to attend oriental orthodox [] Unable to walk/stand [] Unable to read [] Unable to drive [] Unable to eat/drink [] Unable to sleep [] Unable to be with family [] Patient intubated [] Other: Summary Left daily bread in room Time spent with patient
[2020-01-03] MEDS: montelukast sodium 10 mg Tablet PO (08:21)
[2020-01-03] MEDS: losartan 50 mg Tablet PO (08:21)
[2020-01-03] MEDS: citalopram 20 mg Tablet PO (08:21)
[2020-01-03] MEDS: levETIRAcetam 500 mg Tablet 750 MG PO (08:21)
[2020-01-03] MEDS: pantoprazole DR 40 mg Tablet PO (08:21)
--- NOTE | 2020-01-03 08:31 | XACV_ITS ---
Exam Room: [facility] Ht: 163 cm Wt: 118 kg BSA: 2.37 m2 Gender: Female : 1970 Any Known Allergies: Other Exam Priority: Routine Procedure(s): Procedure Description: Diagnostic procedure Procedure Description: Left Heart Catheterization Diagnostic Cath Status: Elective Conclusions 1-Very short left main but normal2-LAD is normal3-LCx is dominant and normal4-RCA is nondominant and normalLeft ventricle function is normal 65%. Indication : Chest pain recurrent. Recommendations Usual post-cath care. Diagnostic RX Recommendation: none Ejection Fraction: 60.0 % Pressures Phase:Rest AO : 148 mmHg / 95 mmHg ( 121 mmHg ) @ 5:29:00 AM 156 mmHg / 88 mmHg ( 120 mmHg ) @ 5:36:00 AM 156 mmHg / 88 mmHg ( 124 mmHg ) @ 5:36:00 AM LV : 175 mmHg / 12 mmHg / @ 5:35:00 AM 167 mmHg / 10 mmHg / @ 5:35:00 AM 199 mmHg / 21 mmHg / @ 5:36:00 AM 164 mmHg / 18 mmHg / @ 5:36:00 AM 170 mmHg / 18 mmHg / @ 5:36:00 AM Valves Phase:DefaultPhase AV : 8.0 mmHg @ 10:46:43 AM AV Mean Gradient: 13.0 mmHg @ 10:46:43 AM Clinical Evaluation EBL: 5mL-10mL Procedural Details Procedure Consent Obtained. Admit Source: In Patient. Pre-Procedure Time Out. Identified patient by full name and date of as verbalized by the patient/guarantor. Does the consent match the physician's order: Yes. Accurate & Complete Informed Consent: Yes. Inpatient/Outpatient History & Physical on Chart: Yes. If H&P is completed, is and addenduem needed: N/A; If yes, is the addendum complete: N/A. Visualize and Verify Site with Patient/Guarantor: N/A. Relevant Radiology Images available: N/A. Pre-op teaching completed and patient verbalized understanding. The risks, benefits, and alternatives of sedation and/or procedure were discussed by physician. The patient agrees to continue. Procedure started. Correct patient, site and procedure confirmed by cath team. PERRLA. Strong, equal hand director of scout work bilaterally. Lungs clear x 5 lobes. IV Site on Arrival: 20 gauge in the right anticubital. Oxygen started at 2liters/min via nasal canula. bilateral groins was prepped with chloroprep then draped in the usual sterile fashion. right radial was prepped with chloroprep then draped in the usual sterile fashion. Physician notified. Baseline sample Acquired. HR: 73 BPM. Physician arrived. Physician scrubbed in. Immediate Pre-Procedure Time Out. Correct Patient: Yes; Correct Procedure: Yes; Correct Site: Yes; Correct Patient Position: Yes; Correct Supplies: Yes; Dried Flammable Prep: Yes; Blood Products Available: N/A;. Lidocaine 1% infiltrated to the right radial. Arterial access obtained. A 5 italian Jeovanny catheter in over wire. Multiple views taken of left coronary artery. Catheter redirected to the RCA. Multiple views taken of right coronary artery. Catheter redirected to the LCA. Catheter out. A 5 italian Angled Pig catheter in over wire. EDP Sample taken: LV 175/12,29; HR: 82 BPM; SpO2: 96%. LV gram performed in CARDOSO @ 10 mL/second for a total of 20 mL. EDP Sample taken: LV 164/18,28; HR: 77 BPM; SpO2: 94%. Pullback taken: LV 170/18,28; AO 156/88(120); Mean: 13mmHg, Peak to Peak: 8mmHg, SEP: 21sec/min; HR: 78 BPM; SpO2: 98%. TR band placed. Hemostasis obtained. Post Procedure: Pulses reassessed and unchanged. PERRLA. Strong, equal hand director of scout work bilaterally. A TR Band was successful obtaining hemostatsis at the Right Radial artery insertion site. No VTE prophylaxis required. Contrast type used: Visipaque 320 mgI/mL, 500 mL bottle. Contrast Material : Visipaque 114 ml. [facility] Clinical Fraility Score: 3: Managing Well. Manager Case Management Indications: New Onset Angina. Chest Pain Symptom Assessment: Typical Angina Symptoms. Cardiovascular Instability: No. Post-op diagnosis: normal coronaries. Medication's Wasted: Lidocaine 1% = 18 mL. Vital chart was stopped. Medication's Wasted: Heparin = 1000 units. Medication's Wasted: Nitro = 49.8 mg. Medication's Wasted: Other = fentanyl 50 mg. Total IV fluids: 31.4 mL. Complications: none. Estimated blood loss: 5mL-10mL. Procedure completed. Patient transferred by wheelchair to 1st floor. Site: Right Radial artery Sheath Size: 6 Fr Hemostasis Method: TR Band Hemostasis Success: Successful Procedure Medications Start: 10:16 AM Stop: 10:16 AM Medication: Benadryl Amount: 25 mg Route: I.V. Start: 10:18 AM Stop: 10:18 AM Medication: Versed Amount: 1 mg Route: I.V. Start: 10:18 AM Stop: 10:18 AM Medication: Fentanyl Amount: 50 mcg Route: I.V. Start: 10:22 AM Stop: 10:22 AM Medication: Versed Amount: 1 mg Route: I.V. Start: 10:22 AM Stop: 10:22 AM Medication: Fentanyl Amount: 50 mcg Route: I.V. Start: 10:24 AM Stop: 10:24 AM Medication: Nitrogylcerin Amount: 200 mcg Route: I.A. Start: 10:27 AM Stop: 10:27 AM Medication: Heparin Amount: 5000 units Route: I.V. Start: 10:37 AM Stop: 10:37 AM Medication: Fentanyl Amount: 50 mcg Route: I.V. I, the attending physician, have reviewed and verified all procedure medications. Yes, all medications given per verbal order History/Risk Factors Hypertension: Yes Dyslipidemia: No Diabetic Therapy: Oral Peripheral Arterial Disease (PAD): No Myocardial Infarction (NV): No Obesity: No Renal Disease: Yes Tobacco Use: Current/Recent(w/in 1 year) Prior Interventions PCI: No CABG: No Valve Surgery: No Report Signatures Finalized by:Alin Castellano MD on 01/13/2020 3:13:23 AM
--- NOTE | 2020-01-03 10:48 | PM.PN ---
Subjective Subjective: Interval history: Patient underwent left heart cath this morning showed normal coronaries. Vitals/I&O/Wt Last Vital Signs Temp 97.9 F 01/03/20 07:26 Pulse 64 01/03/20 10:05 Resp 16 01/03/20 10:05 BP 146/81 01/03/20 08:21 Pulse Ox 94 01/03/20 10:05 01/02/20 01/03/20 01/03/20 22:59 06:59 14:59 Intake Total 500 / 500 Balance 500 / 500 Weight last 48 hrs Weight 260 lb Physical Exam Narrative: EXAM NARRATIVE: GENERAL: Patient is alert, awake and oriented x3. NECK: No jugular vein distension. Optimally controlled continue medicine. HEENT: No cyanosis. No icterus. No pallor. HEART: Regular S1 and S2. No murmur, rub or gallop. LUNGS: Clear to auscultate bilaterally. ABDOMEN: Soft, nontender and nondistended. Positive bowel sounds. No guarding, rebound or tenderness. CENTRAL NERVOUS SYSTEM: Grossly nonfocal. EXTREMITIES: Lower extremities without edema bilaterally. Data : 01/03/20 05:01 01/03/20 05:01 A&P Assessment and plan (1) Chest pain: Patient underwent left heart cath. It was consistent with normal coronaries. Left ventricle end-diastolic pressure was mildly elevated however left ventricular ejection fraction was normal at 60%. Most likely chest pain is secondary to extracardiac causes/anxiety/musculoskeletal or GERD. We will start PPI and discharge her today. Status: Acute Qualifiers: Chest pain type: precordial pain Qualified Code(s): R07.2 - Precordial pain (2) Anxiety disorder: Anxiety treatment as per medicine. Status: Acute Qualifiers: Anxiety disorder type: other anxiety disorder Qualified Code(s): F41.8 - Other specified anxiety disorders (3) Uncontrolled hypertension: Blood pressure remains under control after optimization of medicine. Continue metoprolol continue losartan. Status: Acute Attestations Medical Necessity Statement*: Patient can be discharged home today. Coding Level of Care Code Established Pt Acute Invertebrate Paleontologist for Dragang Fwd Patient Type Established History Expanded Problem Focused Exam Expanded Problem Focused Medical Decision Making Moderate Complexity Diagnoses Chest pain R07.2 Chest pain type: precordial pain Anxiety disorder F41.8 Anxiety disorder type: other anxiety disorder Uncontrolled hypertension I10
--- NOTE | 2020-01-03 14:00 | PC.NURSE ---
TR Band Removal No hematoma, bleeding or swelling noted. Radial pulse palpable. Post angiogram home care instructions discuss to pt. Especially wound care, activity restrictions and abnormal symptoms to look for.
[2020-01-03] MEDS: HYDROcodone-acetaminophen 5-325 mg Tablet 1 TAB PO (14:20)
--- NOTE | 2020-01-03 15:41 | PC.NURSE ---
Pt is sleeping on her right side. Re-assess her pain post hydrocodone. I asked her if she has any pain right now. She verbalizes, none. Will inform the doctor.
--- NOTE | 2020-01-03 16:04 | P.DS_ITS ---
Discharge Providers Date of Admission: 01/02/20 19:19 Date of Discharge: January 03, 2020 Attending Provider at Admission: Nader Gonsales Attending Provider at Discharge: Mello Yuan MD Primary Care Provider: TUNDE Arteaga Diagnoses at Discharge Discharge Diagnosis (1) Chest pain: Status: Acute Problem details: Angiogram with no significant coronary disease. Discharged today. Qualifiers: Chest pain type: precordial pain Qualified Code(s): R07.2 - Precordial pain (2) Anxiety disorder: Status: Acute Qualifiers: Anxiety disorder type: other anxiety disorder Qualified Code(s): F41.8 - Other specified anxiety disorders (3) Uncontrolled hypertension: Status: Acute Reason for Visit Reason for Visit: HIGH BP AND CP Hospital Course Hospital Course: Diamond is a 49-year-old white female who presented to the hospital with chest discomfort. Secondary to recurrent discomfort cardiology was consulted, and she underwent coronary angiogram on January 02. Prior to this troponins were performed which demonstrated no significant elevation and EKG was nonischemic. Angiogram revealed normal coronaries. Blood pressure while in the hospital, was optimally controlled. She was discharged home to follow-up with her primary care provider as well as cardiology clinic. Physical Exam Narrative: EXAM NARRATIVE: General exam no apparent distress Cardiovascular regular in rhythm without murmur Lungs clear Abdomen soft, positive bowel sounds Extremities no cyanosis clubbing or edema Discharge Data Data Completed and Pending: Completed Studies During Hospitalization Category Date Time Status XR chest 1V mariam ble [id number] Stat Exams 01/02/20 16:48 Completed Pending at discharge Category Date Time Status MEDICAL ASSISTANT INTERNAL MEDICINE request for service Routin e Exams 01/03/20 08:31 Ordered Labs from last 24 hours 01/03/20 01/03/20 01/02/20 05:01 05:01 23:10 WBC 6.8 RBC 4.13 Hgb 12.0 Hct 38.2 MCV 92.5 MCH 29.1 MCHC 31.4 RDW 13.8 Plt Count 239 MPV 10.2 Neut % (Auto) 58.6 Lymph % (Auto) 29.7 [place] % (Auto) 7.7 Eos % (Auto) 3.1 Baso % (Auto) 0.6 Neut # (Auto) 3.98 Lymph # (Auto) 2.0 [place] # (Auto) 0.5 Eos # (Auto) 0.2 Baso # (Auto) 0.0 Nucleated RBC % (a uto) 0 Nucleated RBCs # 0.0 PT INR D-Dimer Sodium 140 Potassium 3.8 Chloride 103 Carbon Dioxide 28 Anion Gap 12.8 BUN 11 Creatinine 0.8 GFR Calculation 76.6 L Glucose 100 Calculated Osmolal ity 286 Calcium 9.2 Total Bilirubin AST ALT Alkaline Phosphata se Troponin T Baselin e Troponin T 120 Min [place] Delta Troponin T Troponin T Hi Sens 6Hr 6.86 Troponin T Hi Sens 6Hr Delta -0.14 L NT-Pro-B Natriuret Pep Total Protein Albumin Globulin Triglycerides Cholesterol LDL Cholesterol, C alc Total VLDL Cholest cristy HDL Cholesterol Cholesterol/HDL Ra josse HCG, Qual 01/02/20 01/02/20 01/02/20 19:14 19:14 17:05 WBC RBC Hgb Hct MCV MCH MCHC RDW Plt Count MPV Neut % (Auto) Lymph % (Auto) [place] % (Auto) Eos % (Auto) Baso % (Auto) Neut # (Auto) Lymph # (Auto) [place] # (Auto) Eos # (Auto) Baso # (Auto) Nucleated RBC % (a uto) Nucleated RBCs # PT INR D-Dimer Sodium Potassium Chloride Carbon Dioxide Anion Gap BUN Creatinine GFR Calculation Glucose Calculated Osmolal ity Calcium Total Bilirubin AST ALT Alkaline Phosphata se Troponin T Baselin e Troponin T 120 Min [place] 8.15 Delta Troponin T 1.15 Troponin T Hi Sens 6Hr Troponin T Hi Sens 6Hr Delta NT-Pro-B Natriuret Pep Total Protein Albumin Globulin Triglycerides 223 H Cholesterol 284 H LDL Cholesterol, C alc 206 H Total VLDL Cholest cristy 45 H HDL Cholesterol 33 L Cholesterol/HDL Ra josse 8.61 H HCG, Qual Negative 01/02/20 01/02/20 01/02/20 17:05 17:05 17:05 WBC RBC Hgb Hct MCV MCH MCHC RDW Plt Count MPV Neut % (Auto) Lymph % (Auto) [place] % (Auto) Eos % (Auto) Baso % (Auto) Neut # (Auto) Lymph # (Auto) [place] # (Auto) Eos # (Auto) Baso # (Auto) Nucleated RBC % (a uto) Nucleated RBCs # PT 12.20 INR 0.88 D-Dimer <= 0.27 Sodium Potassium Chloride Carbon Dioxide Anion Gap BUN Creatinine GFR Calculation Glucose Calculated Osmolal ity Calcium Total Bilirubin AST ALT Alkaline Phosphata se Troponin T Baselin e 7 Troponin T 120 Min [place] Delta Troponin T Troponin T Hi Sens 6Hr Troponin T Hi Sens 6Hr Delta NT-Pro-B Natriuret Pep Total Protein Albumin Globulin Triglycerides Cholesterol LDL Cholesterol, C alc Total VLDL Cholest cristy HDL Cholesterol Cholesterol/HDL Ra josse HCG, Qual 01/02/20 01/02/20 17:05 17:05 WBC 7.1 RBC 4.38 Hgb 12.8 Hct 39.6 MCV 90.4 MCH 29.2 MCHC 32.3 RDW 13.6 Plt Count 260 MPV 9.9 Neut % (Auto) 59.5 Lymph % (Auto) 30.3 [place] % (Auto) 6.8 Eos % (Auto) 2.4 Baso % (Auto) 0.6 Neut # (Auto) 4.20 Lymph # (Auto) 2.1 [place] # (Auto) 0.5 Eos # (Auto) 0.2 Baso # (Auto) 0.0 Nucleated RBC % (a uto) 0 Nucleated RBCs # 0.0 PT INR D-Dimer Sodium 140 Potassium 4.0 Chloride 102 Carbon Dioxide 27 Anion Gap 15.0 BUN 10 Creatinine 0.7 GFR Calculation 89.3 L Glucose 103 Calculated Osmolal ity 286 Calcium 9.5 Total Bilirubin 0.4 AST 12 ALT 13 Alkaline Phosphata se 83 Troponin T Baselin e Troponin T 120 Min [place] Delta Troponin T Troponin T Hi Sens 6Hr Troponin T Hi Sens 6Hr Delta NT-Pro-B Natriuret Pep 428 H Total Protein 7.6 Albumin 4.3 Globulin 3.3 Triglycerides Cholesterol LDL Cholesterol, C alc Total VLDL Cholest cristy HDL Cholesterol Cholesterol/HDL Ra josse HCG, Qual Vitals: Last Vital Signs Temp 98.2 F 01/03/20 15:36 Pulse 58 L 01/03/20 15:36 Resp 14 01/03/20 15:36 BP 109/61 01/03/20 15:36 Pulse Ox 93 01/03/20 15:36 Discharge Plan Discharge Patient Disposition: Home, Self-Care Condition: Stable Prescriptions: Continued fluticasone propionate [Flonase Allergy Relief] 50 mcg/actuation spray,suspension 1 spray INTRANASAL PRN RF: 0 diclofenac sodium [Voltaren] 1 % gel 2 - 4 gm TOPICAL DAILY RF: 0 Flovent HFA 110 mcg/actuation HFA aerosol inhaler 1 puff INHALATION BID RF: 0 albuterol sulfate [ProAir HFA] 90 mcg/actuation HFA aerosol inhaler 2 puff INHALATION Q6H PRN (Reason: Shortness Of Breath) RF: 0 levetiracetam [Keppra] 750 mg tablet 750 mg PO BID Qty: 60 RF: 3 citalopram [Celexa] 20 mg tablet 20 mg PO DAILY Qty: 30 RF: 0 ondansetron HCl [Zofran] 4 mg tablet 4 mg PO Q6H PRN (Reason: nausea and vomiting) Qty: 30 RF: 0 pantoprazole [Protonix] 40 mg tablet,delayed release (DR/EC) 40 mg PO DAILY Qty: 30 RF: 2 losartan 50 mg tablet 50 mg PO DAILY Qty: 30 RF: 6 metoprolol succinate 25 mg tablet extended release 24 hr 25 mg PO DAILY Qty: 30 RF: 6 montelukast [Singulair] 10 mg tablet 10 mg PO DAILY Qty: 30 RF: 3 [place]etta 10 mcg/dose(250 mcg/mL) 2.4 mL Pen Injector See Rx Instructions .ROUTE .COMPLEX RF: 0 ipratropium-albuterol 0.5 mg-3 mg(2.5 mg base)/3 mL Solution For Nebulization 3 ml INHALATION PRN RF: 0 Combivent Respimat 20-100 mcg/actuation mist 1 puff INHALATION PRN RF: 0 Ambien 10 mg tablet 10 mg PO PRN RF: 0 Discharge Orders: Discharge Order (Routine); Ordered 01/03/20 Ordered By: Alin Castellano Referrals: Meka Greco FNP [Primary Care Provider] - 7-10 days Ruth Braxton FNP [Nurse Practitioner] - 7-10 days (You have a post procedure appointment with TUNDE Elizalde at [facility] on January 16 at 3:15pm) Discharge Diet: Cardiac Discharge Activity: Increase activity as tolerated Patient Instructions: Left Heart Catheterization (DC) Activity Restrictions/Additional Instructions: No lifting with right hand for next 2 days Discharge Attestations 2 Time Spent in Discharge Care*: greater than 30 min Status at Discharge: Cognitive status at discharge: cognitively intact , Behavioral status at discharge: cooperative , Quality Metrics Clinical Quality Measures During this hospital stay, did patient experience: None Coding Level of Care Code Acute Knot Picker Cloth for Dragang Fwd Diagnoses Chest pain R07.2 Chest pain type: precordial pain Anxiety disorder F41.8 Anxiety disorder type: other anxiety disorder Uncontrolled hypertension I10
== END 2020-01-03 17:16 | disposition home or self-care (01) ==
LOC: ER 17:24 → CSU 19:28
PROVIDERS: Emergency Medicine; Family Medicine; Internal Medicine Cardiovascular Disease; Admitting Provider Internal Medicine; PCP Nurse Practitioner Family; Visit Provider Internal Medicine
DX: R07.2 Precordial pain (principal); F41.8 Other specified anxiety disorders; Z79.1 Long term (current) use of non-steroidal anti-inflammatories (NSAID); R68.81 Early satiety; J45.909 Unspecified asthma, uncomplicated; E11.22 Type 2 diabetes mellitus with diabetic chronic kidney disease; I12.9 Hypertensive chronic kidney disease with stage 1 through stage 4 chronic kidney disease, or unspecified chronic kidney disease; N18.9 Chronic kidney disease, unspecified; G47.33 Obstructive sleep apnea (adult) (pediatric); M19.90 Unspecified osteoarthritis, unspecified site; Z77.22 Contact with and (suspected) exposure to environmental tobacco smoke (acute) (chronic); Z82.49 Family history of ischemic heart disease and other diseases of the circulatory system; Z83.3 Family history of diabetes mellitus
CPT/HCPCS: 12345; 36415; 71045; 80048; 80053; 80061; 83880; 84484; 84703; 85025; 85378; 85610; 93005; 93452; 96372; 96374; 96375; 99283; 99285; C1769; C1887; C1894; G0378; J1200; J1644; J2060; J2250; J2270; J2405; J3010; J3490; J7030; Q9967

== ENCOUNTER → 2020-03-06 10:02 | Outpatient (BNVA) | payer MEDICARE, MEDICAID, SELFPAY | PROVIDERS: PCP Nurse Practitioner Family; Visit Provider Nurse Practitioner Family | DX: R10.9 Unspecified abdominal pain (principal); R53.83 Other fatigue; E11.9 Type 2 diabetes mellitus without complications | CPT/HCPCS: 80053; 80061; 82306; 82607; 83036; 83690; 84439; 84443; 84481; 85025 ==

== ENCOUNTER 2020-03-27 15:17 | Outpatient (CLI) | payer MEDICARE, MEDICAID, SELFPAY ==
--- NOTE | 2020-03-27 | XRR_ITS ---
ADDENDUM XR/XR lumbar spine 2-3V* [id number] IMPRESSION: 1. There are a few radiodensities projecting over the soft tissue dorsal to the spine on the lateral view which are not seen on the frontal view, which could be external to the patient or in soft tissue lateral to the spine/external to the field of view on the frontal view. Given these 2 views, there is no needle immediately dorsal to the lumbar spine. A follow-up lateral radiograph on 04/13/2020 does not reveal any of these radiodensities. 2. Otherwise no acute abnormality Addendum Dictated By: Nabil Jackson MD Addendum Signed By: Nabil Jackson MD Signed Date/Time: 05/18/20 1043 Addendum Cosigned By: ADDENDUM PROCEDURE INFORMATION: Exam: XR Lumbosacral Spine, 2 or 3 Views Exam date and time: 03/27/2020 3:31 PM Clinical indication: Low back pain TECHNIQUE: Imaging protocol: XR of the lumbosacral spine, 2 or 3 views. COMPARISON: No relevant prior studies available. FINDINGS: Bones/joints: Normal. No acute fracture. Normal alignment. Soft tissues: A metallic needle (22.6 mm) is seen in the soft tissues of the back posterior to the L2 vertebral body. Addendum Dictated By: Sharan Brar Addendum Signed By: Sharan Brar Signed Date/Time: 05/12/20 1453 Addendum Cosigned By: ADDENDUM Addendum Dictated By: Addendum Signed By: Signed Date/Time: Addendum Cosigned By: Nabil Jackson MD 05/18/20 1043 ADDENDUM XR/XR lumbar spine 2-3V* [id number] IMPRESSION: 1. Metallic needle posterior to the L2 vertebral body 2. Otherwise no acute Jaiden inked Addendum Dictated By: Sharan Brar Addendum Signed By: Sharan Brar Signed Date/Time: 05/12/20 145 Addendum Cosigned By: PROCEDURE INFORMATION: Exam: XR Lumbosacral Spine, 2 or 3 Views Exam date and time: 03/27/2020 3:31 PM Age: 49 years old Clinical indication: Low back pain TECHNIQUE: Imaging protocol: XR of the lumbosacral spine, 2 or 3 views. COMPARISON: CT chest abd pel w con* 12/15/2019 2:34 PM FINDINGS: Vertebrae: Normal. No acute fracture. Normal alignment. Soft tissues: The soft tissues in the posterior back shows a 22 mm metallic needle imbedded within the soft tissues XR/XR lumbar spine 2-3V* [id number] IMPRESSION: 1. No acute findings. 2. Metallic needle in the soft tissues of the back Dictated By: Sharan Brar Signed By: Sharan Brar Signed Date/Time: 03/27/20 165 DD/ 165 MTDD XR/XR lumbar spine 2-3V* [id number] IMPRESSION: 1. No acute findings. 2. Metallic needle in the soft tissues of the back ADDENDUM: 05/12/201452 IMPRESSION: 1. Metallic needle posterior to the L2 vertebral body 2. Otherwise no acute Jaiden inked ADDENDUM: 05/18/20 1043
--- NOTE | 2020-03-27 15:30 | XRR_ITS ---
PROCEDURE INFORMATION: Exam: XR Lumbosacral Spine, 2 or 3 Views Exam date and time: 03/27/2020 3:31 PM Age: 49 years old Clinical indication: Low back pain TECHNIQUE: Imaging protocol: XR of the lumbosacral spine, 2 or 3 views. COMPARISON: CT chest abd pel w con* 12/15/2019 2:34 PM FINDINGS: Vertebrae: Normal. No acute fracture. Normal alignment. Soft tissues: The soft tissues in the posterior back shows a 22 mm metallic needle imbedded within the soft tissues
--- NOTE | 2020-03-27 15:30 | XRR_ITS ---
PROCEDURE INFORMATION: Exam: XR Thoracic Spine, 3 Views Exam date and time: 03/27/2020 3:31 PM Age: 49 years old Clinical indication: Other: Tspine tenderness TECHNIQUE: Imaging protocol: XR of the thoracic spine, 3 views. COMPARISON: No relevant prior studies available. FINDINGS: Vertebrae: Normal. No acute fracture. Normal alignment. Soft tissues: Unremarkable. XR/XR thoracic spine 3V* [id number] IMPRESSION: No acute findings.
--- NOTE | 2020-03-27 15:30 | XRR_ITS ---
PROCEDURE INFORMATION: Exam: XR Cervical Spine, 2 or 3 Views Exam date and time: 03/27/2020 3:31 PM Age: 49 years old Clinical indication: Neck pain TECHNIQUE: Imaging protocol: XR of the cervical spine, 2 or 3 views. COMPARISON: No relevant prior studies available. FINDINGS: Vertebrae: Mild osteoarthritis is seen with narrowing and bone spurs C6-C7. No acute fracture. There is loss of cervical lordosis corresponding to muscle spasm. Soft tissues: Unremarkable. XR/XR cervical spine 3V* [id number] IMPRESSION: 1. No acute findings. 2. Loss of cervical lordosis 3. Mild osteoarthritis
--- NOTE | 2020-03-27 15:45 | US_ITS ---
WS: [id number] THYROID ULTRASOUND HISTORY: fatigue; sister with thyroid cancer COMPARISON: None available. Right lobe: 4.0 cm x 1.6 cm x 1.7 cm. Volume: 5.8 cm3. Enlarged heterogeneous thyroid. No discrete nodules. No increased vascularity. Left lobe: 4.0 cm x 1.6 cm x 1.3 cm. Volume: 4.3 cm3. Enlarged heterogeneous thyroid. No discrete nodule. No increased vascularity. Isthmus: 0.5 cm. US/US thyroid [id number] IMPRESSION: Enlarged heterogeneous thyroid gland with no increased vascularity. Toni's thyroiditis and multinodular goiter within the differential. No discrete mass.
== END 2020-03-27 15:18 | disposition home or self-care (01) ==
LOC: RAD 15:27
PROVIDERS: PCP Nurse Practitioner Family; Visit Provider Nurse Practitioner Family
DX: R53.83 Other fatigue (principal); M54.2 Cervicalgia; M54.5 Low back pain; M54.6 Pain in thoracic spine; E04.9 Nontoxic goiter, unspecified; M47.812 Spondylosis without myelopathy or radiculopathy, cervical region; Z80.8 Family history of malignant neoplasm of other organs or systems
CPT/HCPCS: 72040; 72072; 72100; 76536

== ENCOUNTER → 2020-04-07 11:20 | Outpatient (BNVA) | payer MEDICARE, MEDICAID, SELFPAY | PROVIDERS: PCP Nurse Practitioner Family; Visit Provider Nurse Practitioner Family | DX: E04.9 Nontoxic goiter, unspecified (principal) | CPT/HCPCS: 86376 ==

== ENCOUNTER 2020-04-13 09:17 | Outpatient (CLI) | payer MEDICARE, MEDICAID, SELFPAY ==
--- NOTE | 2020-04-13 09:33 | MM_ITS ---
WS: [id number] Exam: [place] [id number] Date/Time of Exam: 04/13/2020 9:39 AM Reason For Exam: screening mammo VIEWS: MLO and CC views both breasts. Fatty breast density. Findings: There was no sign of mass, architectural distortion or suspicious calcification in either breast. MM/[place] [id number] Impression: BI-RADS: 1-Negative FOLLOW-UP: 1 Year Follow-up This mammogram was also analyzed by the Computer Aided Detection System R2 Imag e Manager [employer].
--- NOTE | 2020-04-13 10:43 | XRR_ITS ---
PROCEDURE INFORMATION: Exam: XR Spine, 1 view; Lumbar Exam date and time: 04/13/2020 12:05 PM Age: 49 years old Clinical indication: Patient status: Conscious; Pain: Bakc pain TECHNIQUE: Imaging protocol: XR of the spine, 1 view. Exam focused on the lumbar spine. COMPARISON: CR XR lumbar spine 2-3V* [id number] 03/27/2020 4:18 PM FINDINGS: Bones/joints: A lateral view of the lumbar spine is presented for review Soft tissues: unremarkable XR/XR lumbar spine 1V [id number] IMPRESSION: No acute findings.
--- NOTE | 2020-04-13 11:25 | CT_ITS ---
WS: [id number] CT ABDOMEN AND PELVIS WITH CONTRAST HISTORY: abdominal pain TECHNIQUE: Imaging performed of the abdomen and pelvis with IV contrast. Single phase imaging of the abdomen. Coronal and sagittal reformats are submitted. All CT scans at [facility] use at least one of these dose optimization techniques: automated exposure control; mA and/or kV adjustment per patient size (includes targeted exams where dose is matched to clinical indication); or iterativ e reconstruction. IV CONTRAST: Omnipaque 300; 95 mL IV. Oral contrast: Yes. DLP: 1800.62 mGy.cm COMPARISON: 12/15/2019 and 07/08/2018 Lower thorax: Mild dependent changes at the lung bases. Mild cardiomegaly. Small hiatal hernia. Liver/biliary system: Mildly enlarged liver with changes of hepatic steatosis along the falciform lig ament. No bile duct dilatation. Gallbladder: Status post cholecystectomy. Pancreas: Normal. Spleen: Normal. Adrenal glands: Normal. Right kidney: No obstruction or solid mass. There are a few scattered hypodensities which are too sma ll to characterize. The largest in the upper pole is 9 mm and stable since 06/28/2018. Left kidney: Normal. Aorta: Normal. Lymphadenopathy: None. Free fluid: None. GI tract: Normal appendix. Mild fecal retention and constipation. Abdominal wall: Unremarkable abdominal wall. No hernia. Pelvis: Minimally distended urinary bladder. No free fluid in the pelvis. Prior hysterectomy. Bones: Unremarkable. CT/CT abdomen pelvis w con* [id number] IMPRESSION: 1. No acute abdominal or pelvic abnormalities. 2. Stable RIGHT renal hypodensities since 06/28/2018. No solid mass. 3. Prior cholecystectomy and hysterectomy.
[2020-04-13] MEDS: iohexol 300 mg/mL 100 mL Btl IV (12:19)
== END 2020-04-13 09:18 | disposition home or self-care (01) ==
PROVIDERS: PCP Nurse Practitioner Family; Visit Provider Nurse Practitioner Family
DX: Z12.31 Encounter for screening mammogram for malignant neoplasm of breast; R10.9 Unspecified abdominal pain; M54.5 Low back pain
CPT/HCPCS: 72020; 74177; 77067; Q9967